=== PATIENT | female | born 1950 | race Caucasian/White ===

== ENCOUNTER 2018-07-22 09:05 | Emergency (ER) | payer OTHER ==
[2018-07-22 09:31] LABS: Absolute Lymphocytes (CBC) 1.6 K/uL (0.7-4.9); Absolute Monocytes 0.3 K/uL (0.1-1.3); Absolute Neutrophil 3.2 K/uL (1.8-8.0); Basophils % 0.8 % (0-1.3); Eosinophils % 1.6 % (0-4.4); Hematocrit 43.1 % (36.0-45.0); Lymphocytes % 31.3 % (15.3-44.8); MCH 29.6 pg (27.0-35.0); MCV 86.5 fL (80-100); MPV 9.9 fL (7.6-11.3); Monocytes % 6.4 % (3.3-12.3); Protime INR 1.04; RBC Red Blood Cell Count 4.98 M/uL (3.86-4.86)
--- NOTE | 2018-07-22 09:41 | RAD REPORT ---
EXAM DESCRIPTION: CT - Head Brain Wo Cont - 07/22/2018 9:26 am CLINICAL HISTORY: WEAKNESS Headache, TIA/CVA COMPARISON: No comparisons TECHNIQUE: All CT scans are performed using dose optimization technique as appropriate and may inclu de automated exposure control or mA/KV adjustment according to patient size. FINDINGS: No intracranial hemorrhage, hydrocephalus or extra-axial fluid collection.Mild generalized brain atrophy is present with mild periventricular and deep white matter chronic microvascular ische nadia changes.No areas of brain edema or evidence of midline shift. The paranasal sinuses and mastoids are clear. The calvarium is intact. IMPRESSION: No acute intracranial abnormality.
[2018-07-22 09:44] LABS: ALT/SGPT 27 U/L (12-78); AST/SGOT 22 U/L (15-37); Albumin 4.2 g/dL (3.4-5.0); Alkaline Phosphatase 86 U/L (45-117); BUN Blood Urea Nitrogen 11 mg/dL (7-18); Bicarbonate 29 mmol/L (21-32); Bilirubin Direct 0.1 mg/dL (0-0.2); Bilirubin Total 0.4 mg/dL (0.2-1.0); Glucose Level 103 mg/dL (74-106); Magnesium 2.2 mg/dL (1.8-2.4); NT PRO-BNP 198 pg/mL (<125); Potassium 3.7 mmol/L (3.5-5.1); Protein, Total 8.2 g/dL (6.4-8.2); Sodium Level 141 mmol/L (136-145); Troponin (Emerg Dept Use Only) < 0.02 ng/mL (0.0-0.045)
--- NOTE | 2018-07-22 10:12 | RAD REPORT ---
EXAM DESCRIPTION: RAD - Chest Single View - 07/22/2018 9:37 am CLINICAL HISTORY: MALAISE Chest pain. COMPARISON: CHEST PA AND LAT 2 VIEW dated 09/03/2012 FINDINGS: Portable technique limits examination quality. The lungs are grossly clear. The heart is normal in size. No displaced fractures. IMPRESSION: No acute intrathoracic process suspected.
--- NOTE | 2018-07-22 10:47 | EKG ---
Test Date: 2018-07-22 Test Time: 09:51:33 Drum Drier: MORENO MEASUREMENT RESULTS: Intervals: Rate: 66 IN: 148 QRSD: 96 QT: 432 QTc: 452 Elmo: P: 46 IN: 148 QRS: 36 T: 48 INTERPRETIVE STATEMENTS: Sinus rhythm with premature atrial complexes Otherwise normal ECG Compared to ECG 06/22/2012 17:12:21 Atrial premature complex(es) now present Electronically Signed On 07-22-18 10:47:05 CDT by Melvin Rivas
[2018-07-22 11:18] LABS: Urine Blood NEGATIVE (NEG); Urine Glucose NEGATIVE (NEG); Urine Protein NEGATIVE (NEG)
--- NOTE | 2018-07-22 12:14 | RAD REPORT ---
EXAM DESCRIPTION: MRI - Brain W/Wo Cont - 07/22/2018 11:55 am CLINICAL HISTORY: STROKE CVA/TIA, headache COMPARISON: MRA Head Wo Cont dated 07/22/2018; Head Brain Wo Cont dated 07/22/2018 TECHNIQUE: Multi-sequence, multiplanar MR imaging of the brain was performed with contrast. FINDINGS: No intracranial hemorrhage, hydrocephalus, extra-axial fluid collection or acute infarctio n.Mild confluent T2/FLAIR hyperintensity in the periventricular and deep white matter is present comp atible with chronic microvascular ischemic changes. No edema or shift of midline structures. No intra cranial mass. DWI is negative for acute CVA. The midline structures are normally formed. Mild mucoperiosteal thickening affects the inferior left maxillary antrum. The paranasal sinuses and mastoids are otherwise clear. Post-contrast images show no abnormal enhancement to suggest tumor or infection. IMPRESSION: Negative for acute CVA or other acute intracranial process. No pathologic post-contrast enhancement suspected.
--- NOTE | 2018-07-22 12:18 | RAD REPORT ---
EXAM DESCRIPTION: MRI - MRA Head Wo Cont - 07/22/2018 11:55 am CLINICAL HISTORY: speech difficulty TIA CVA COMPARISON: Head Brain Wo Cont dated 07/22/2018 FINDINGS: 3D noncontrast [id number] MR angiography of the [place] was performed. No aneurysm, flow-limiting stenosis or vascular malformation is seen. Forward flow seen in codominant vertebral arteries. The visualized dural venous sinuses appear patent. IMPRESSION: No significant flow abnormality of the [place] is identified.
--- NOTE | 2018-07-22 12:24 | RAD REPORT ---
EXAM DESCRIPTION: MRI - MRA Neck W/Wo Cont - 07/22/2018 11:55 am CLINICAL HISTORY: STROKE CVA -TIA symptomology. COMPARISON: MRA Head Wo Cont dated 07/22/2018; Head Brain Wo Cont dated 07/22/2018 FINDINGS: Contrast enhance 2D [id number] MR angiography of the neck vessels was performed. Both common carotid arteries and internal carotid arteries demonstrate normal size and flow pattern. No significant carotid stenosis is suspected. Forward flow is seen in both vertebral arteries. IMPRESSION: No significant flow abnormality of the neck vessels.
--- NOTE | 2018-07-22 12:27 | ER ---
Nurse's Notes [facility] Name: Ivette Vu Age: 67 yrs Sex: Female : 1950 Arrival Date: 07/22/2018 Time: 09:07 Bed 4 Private MD: Diagnosis: Vascular headache, not elsewhere classified Presentation: 07/22 09:07 Presenting complaint: Patient states: headache to right sabianism since last night. Pt aa5 reports waking up this morning with nausea, feeling shaky, generalized weakness, and tingling to right hand. Pt's reports slight slurred speech, pt states "I don't feel like my speech is slurred maybe just a little slower than usual". Clear speech noted at this time. 09:07 Transition of care: patient was not received from another setting of care. Onset of aa5 symptoms. Care prior to arrival: None. 09:07 Method Of Arrival: Wheelchair aa5 09:07 Acuity: KRISHNA 2 aa5 12:54 No acute neurological deficit is noted. The patients blood glucose was checked before hj arriving to the hospital and was found to be normal. Triage Assessment: 09:00 The onset of the patients symptoms was July 21, 2018 at 21:00. General: Appears in bp no apparent distress. comfortable, Behavior is calm, cooperative. Historical: - Allergies: 09:08 Sulfa (Sulfonamide Antibiotics); aa5 - PMHx: 09:08 Hypertension; Thyroid problem; aa5 - PSHx: 09:08 Cholecystectomy; Hysterectomy; aa5 - Immunization history:: Adult Immunizations up to date. - Social history:: Smoking status: Patient/guardian denies using tobacco. Screenin:11 Abuse screen: Denies threats or abuse. Denies injuries from another. Nutritional bp screening: No deficits noted. Tuberculosis screening: No symptoms or risk factors identified. Fall Risk None identified. No fall in past 12 months (0 pts). Assessment: 09:12 The patient has not been NPO before screening. The patient is alert, and able to follow bp commands. The patient does not exhibit slurred or garbled speech. The patient is not exhibiting difficulty speaking. The patient does not exhibit difficulty understanding words. The patient is able to swallow own secretions with no drooling or need for suction. Patient tolerated one teaspoon of water. No drooling, immediate coughing, gurgling, or clearing of the throat was noted. The patient tolerated 90mL of water. No drooling, immediate coughing, gurgling, or clearing of the throat was noted. The patient passed the bedside swallow screening. Oral medications may be given as ordered. Contact Physician for further diet orders. Provider notified of bedside swallow screening results: Lon Rodriguez MD. T-PA (Activase) Screening: Contraindications: Patient reports onset of signs and symptoms of stroke greater than 6 hours ago: Yes. Rapidly improving condition or minor deficit: Yes. General: Appears in no apparent distress. comfortable, Behavior is calm, cooperative, appropriate for age. Pain: Denies pain. Neuro: Level of Consciousness is awake, alert, obeys commands, Oriented to person, place, time, situation, Appropriate for age Reports weakness GENERALIZED. Cardiovascular: Rhythm is sinus rhythm. Respiratory: Airway is patent Respiratory effort is even, unlabored, Respiratory pattern is regular, symmetrical. GI: Reports nausea. : No signs and/or symptoms were reported regarding the genitourinary system. EENT: No deficits noted. Derm: No deficits noted. Musculoskeletal: Circulation, motion, and sensation intact. Range of motion: intact in all extremities. 09:29 Reassessment: PT RETURNED FROM CT. bp 10:00 Reassessment: ALL CURRENT ORDERS COMPLETED, RESULTS UNREMARKABLE. DISPO PENDING. NO bp NEURO DEFICITS AT THIS TIME. 11:03 Reassessment: PT TO MRI WITH DIRECTOR FEDERAL. bp 12:15 Reassessment: PT RETURNED FROM MRI. bp Vital Signs: 09:11 BP 185 / 86; Pulse 68; Resp 16; Temp 98; Pulse Ox 100% ; Weight 64.41 kg; Height 5 ft. bp 2 in. (157.48 cm); 09:31 BP 171 / 74; Pulse 69; Resp 16; Pulse Ox 99% ; bp 10:00 BP 156 / 76; Pulse 72; Resp 19; Pulse Ox 99% ; bp 10:40 BP 155 / 90; Pulse 66; Resp 18; Pulse Ox 99% on R/A; hj 12:16 BP 160 / 65; Pulse 66; Resp 14; Pulse Ox 100% ; bp 09:11 Body Mass Index 25.97 (64.41 kg, 157.48 cm) bp NIH Stroke Scale Scores: 09:12 NIHSS Score: 0 bp ED Course: 09:07 Patient arrived in ED. hj 09:07 Arm band placed on Patient placed in an exam room, on a stretcher. aa5 09:08 Lon Rodriguez MD is Attending Physician. gs 09:11 Warren Sue, RN is Primary Nurse. bp 09:11 Triage completed. aa5 09:15 Initial lab(s) drawn, by me, sent to lab. Inserted saline lock: 22 gauge in right hj antecubital area, using aseptic technique. Blood collected. 09:17 Patient has correct armband on for positive identification. Bed in low position. Call bp light in reach. Side rails up X2. Adult w/ patient. 09:24 X-ray completed. Portable x-ray completed in exam room. Patient tolerated procedure sw well. 09:24 XRAY Chest (1 view) In Process Unspecified. EDMS 09:24 CT completed. Patient tolerated procedure well. Patient moved to CT via wheelchair. [email or web address] Patient moved back from CT. 09:26 CT Head Brain wo Cont In Process Unspecified. EDMS 09:55 EKG done, by clinical laboratory technician. reviewed by Lon Rodriguez MD. sm3 11:10 Patient moved to MRI via wheelchair. lc 11:55 MRA Head Wo Cont In Process Unspecified. EDMS 11:55 Brain W/Wo Cont In Process Unspecified. EDMS 11:55 MRA Neck W/Wo Cont In Process Unspecified. EDMS Administered Medications: No medications were administered Point of Care Testing: Blood Glucose: 09:18 Blood Glucose: 92 mg/dL; bp Ranges: Outcome: 12:27 Discharge ordered by MD. 12:53 Discharged to home ambulatory, with family. 12:53 Condition: stable 12:53 Discharge instructions given to patient, family, Instructed on discharge instructions, follow up and referral plans. Demonstrated understanding of instructions, follow-up care. 12:54 Patient left the ED. NIH Stroke Scale - NIH Stroke Score Date: 07/22/2018 Time: 09:12 Total Score = 0 1a. Level of Consciousness (LOC) - 0(Alert) 1b. Level of Consciousness (LOC) (Year \\T\\ Age) - 0(Both) 1c. LOC Commands (Open \\T\\ Closes Eyes/Improvement Leader) - 0(Both) 2. Best Gaze (Lateral Gaze Paresis) - 0(Normal) 3. Visual Field Loss - 0(No visual loss) 4. Facial Palsy - 0(Normal) 5a. Left Arm: Motor (10-second hold) - 0(No drift) 5b. Right Arm: Motor (10-second hold) - 0(No drift) 6a. Left Leg: Motor (5-second hold - always test supine) - 0(No drift) 6b. Right Leg: Motor (5-second hold - always test supine) - 0(No drift) 7. Limb Ataxia (finger/nose \\T\\ heel/garcia - test with eyes open) - 0(Absent) 8. Sensory Loss (pinprick arms/legs/face) - 0(Normal) 9. Best Language: Aphasia (description/naming/reading) - 0(No aphasia) 10. Dysarthria (speech clarity - read or repeat words) - 0(Normal) 11. Extinction and Inattention (visual/tactile/auditory/spatial/personal) - 0(No abnormality) Initials: bp Signatures: Dispatcher [employer] EDMS Yomaira Neri Audri, RN RN aa5 Amy Saleem Henry, RN RN hj Lon Rodriguez MD MD gs Peltier, Brian, RN RN Simin Nielson Jessica jg6 Corrections: (The following items were deleted from the chart) 09:17 09:11 64.41 kg; Height 5 ft. 2 in.; BMI: 25.9; bp bp
--- NOTE | 2018-07-22 12:28 | EDPHYS ---
Physician Documentation [facility] Name: Ivette Vu Age: 67 yrs Sex: Female : 1950 Arrival Date: 07/22/2018 Time: 09:07 Bed 4 Private MD: ED Physician Lon Rodriguez HPI: 07/22 09:09 This 67 yrs old Female presents to ER via Unassigned with complaints of gs Slurred Speech. 09:09 The patient presents to the emergency department with a speech or higher order brain gs function problem. 10:25 Onset: The symptoms/episode began/occurred yesterday, at 20:00. Context: occurred at home. Associated signs and symptoms: Pertinent positives: headache, weakness. Severity of symptoms: At their worst the symptoms were moderate in the emergency department the symptoms have improved markedly. Current symptoms: Currently, the patient is not experiencing any symptoms, the patient feels back to baseline, no headache. The patient has not experienced similar symptoms in the past. Historical: - Allergies: 09:08 Sulfa (Sulfonamide Antibiotics); aa5 - PMHx: 09:08 Hypertension; Thyroid problem; aa5 - PSHx: 09:08 Cholecystectomy; Hysterectomy; aa5 - Immunization history:: Adult Immunizations up to date. - Social history:: Smoking status: Patient/guardian denies using tobacco. Vital Signs: 09:11 BP 185 / 86; Pulse 68; Resp 16; Temp 98; Pulse Ox 100% ; Weight 64.41 kg; Height 5 ft. bp 2 in. (157.48 cm); 09:31 BP 171 / 74; Pulse 69; Resp 16; Pulse Ox 99% ; bp 10:00 BP 156 / 76; Pulse 72; Resp 19; Pulse Ox 99% ; bp 10:40 BP 155 / 90; Pulse 66; Resp 18; Pulse Ox 99% on R/A; hj 12:16 BP 160 / 65; Pulse 66; Resp 14; Pulse Ox 100% ; bp 09:11 Body Mass Index 25.97 (64.41 kg, 157.48 cm) bp NIH Stroke Scale Scores: 09:12 NIHSS Score: 0 bp MDM: 09:08 Patient medically screened. 07/22 09:12 Order name: Basic Metabolic Panel; Complete Time: : gs 07/22 09:12 Order name: CBC with Diff; Complete Time: :16 gs 07/22 10:19 Interpretation: RBC 4.98. gs 07/22 09:12 Order name: LFT's; Complete Time: 10:16 gs 07/22 09:12 Order name: Magnesium; Complete Time: 10:16 gs 07/22 09:12 Order name: NT PRO-BNP; Complete Time: 10:16 gs 07/22 09:12 Order name: PT-INR; Complete Time: 10:16 gs 07/22 09:12 Order name: Troponin (emerg Dept Use Only); Complete Time: 10:16 gs 07/22 09:12 Order name: XRAY Chest (1 view); Complete Time: 10:16 gs 07/22 09:12 Order name: CT Head Brain wo Cont; Complete Time: 10:16 gs 07/22 09:18 Order name: Glucose, Ancillary Testing; Complete Time: 10:16 EDMS 07/22 11:10 Order name: Urine Dipstick--Ancillary (enter results) bd 07/22 11:21 Order name: MRA Head Wo Cont; Complete Time: 12:25 EDMS 07/22 11:22 Order name: Brain W/Wo Cont; Complete Time: 12:25 EDMS 07/22 09:12 Order name: EKG; Complete Time: 09:13 gs 07/22 09:12 Order name: Cardiac monitoring; Complete Time: 09:19 gs 07/22 09:12 Order name: EKG - Nurse/Tech; Complete Time: 09:52 gs 07/22 09:12 Order name: IV Saline Lock; Complete Time: 09:18 gs 07/22 09:12 Order name: Labs collected and sent; Complete Time: 09:18 gs 07/22 09:12 Order name: O2 Per Protocol; Complete Time: 09:18 gs 07/22 09:12 Order name: O2 Sat Monitoring; Complete Time: 09:18 gs 07/22 11:04 Order name: Urine Dipstick-Ancillary (obtain specimen); Complete Time: 11:24 bp 07/22 11:22 Order name: MRA Neck W/Wo Cont; Complete Time: 12:25 EDMS Administered Medications: No medications were administered Point of Care Testing: Blood Glucose: 09:18 Blood Glucose: 92 mg/dL; bp Ranges: Critical Glucose Levels:Adult <50 mg/dl or >400 mg/dl <40 mg/dl or >180 mg/dl Disposition: 07/22/18 12:27 Discharged to Home. Impression: Vascular headache, not elsewhere classified. - Condition is Stable. - Discharge Instructions: General Headache Without Cause, Transient Ischemic Attack. - Medication Reconciliation Form, Thank You Letter, Antibiotic Education, Prescription Opioid Use form. - Follow up: Private Physician; When: 2 - 3 days; Reason: Re-evaluation by your physician. NIH Stroke Scale - NIH Stroke Score Date: 07/22/2018 Time: 09:12 Total Score = 0 1a. Level of Consciousness (LOC) - 0(Alert) 1b. Level of Consciousness (LOC) (Year \T\ Age) - 0(Both) 1c. LOC Commands (Open \T\ Closes Eyes/[place]) - 0(Both) 2. Best Gaze (Lateral Gaze Paresis) - 0(Normal) 3. Visual Field Loss - 0(No visual loss) 4. Facial Palsy - 0(Normal) 5a. Left Arm: Motor (10-second hold) - 0(No drift) 5b. Right Arm: Motor (10-second hold) - 0(No drift) 6a. Left Leg: Motor (5-second hold - always test supine) - 0(No drift) 6b. Right Leg: Motor (5-second hold - always test supine) - 0(No drift) 7. Limb Ataxia (finger/nose \T\ heel/garcia - test with eyes open) - 0(Absent) 8. Sensory Loss (pinprick arms/legs/face) - 0(Normal) 9. Best Language: Aphasia (description/naming/reading) - 0(No aphasia) 10. Dysarthria (speech clarity - read or repeat words) - 0(Normal) 11. Extinction and Inattention (visual/tactile/auditory/spatial/personal) - 0(No abnormality) Initials: bp Signatures: Dispatcher [employer] [facility] Anne-Marie Rothman RN RN aa5 Venkatesh Mclean RN RN hj Starr, Gregory, MD MD gs Peltier, Brian RN RN bp Corrections: (The following items were deleted from the chart) 11:21 10:34 Stroke Protocol ordered. [facility] 12:54 12:27 07/22/2018 12:27 Discharged to Home. Impression: Vascular headache, not hj elsewhere classified. Condition is Stable. Forms are Medication Reconciliation Form, Thank You Letter, Antibiotic Education, Prescription Opioid Use. Follow up: Private Physician; When: 2 - 3 days; Reason: Re-evaluation by your physician. gs
[2018-07-22 13:07] VITALS: TEMP 98
[2018-07-22 13:12] VITALS: BP 160/65; O2SAT 100
== END 2018-07-22 12:54 | disposition home or self-care (01) ==
LOC: ER 09:05
DX: G44.1 Vascular headache, not elsewhere classified (principal); I10 Essential (primary) hypertension; Z88.2 Allergy status to sulfonamides
CPT/HCPCS: 36415; 70450; 70544; 70549; 70553; 71045; 80048; 80076; 81003; 82962; 83735; 83880; 84484; 85025; 85610; 93005; 99285; A9577

== ENCOUNTER 2019-09-02 09:50 | Day surgery (SDC) | payer OTHER ==
[2019-09-02] MEDS ORDERED: Zoledronic Acid/Mannitol/Water 5 MG/100 ML INFUS.BOT IV ONE (10:00)
[2019-09-02 10:42] VITALS: BP 132/67; TEMP 98.8; O2SAT 97
[2019-09-02 10:43] VITALS: BMI 27.1
== END 2019-09-02 10:50 | disposition home or self-care (01) ==
LOC: DS 09:50
PROVIDERS: ATTEND Specialist
DX: M81.0 Age-related osteoporosis without current pathological fracture (principal); Z88.9 Allergy status to unspecified drugs, medicaments and biological substances
CPT/HCPCS: 96365; J3489

== ENCOUNTER 2020-01-11 16:31 | Observation (INO) | payer OTHER ==
[2020-01-11 17:30] LABS: Absolute Lymphocytes (CBC) 0.6 K/uL (0.7-4.9); Basophils % 0.1 % (0-1.3); Hematocrit 38.5 % (36.0-45.0); Lymphocytes % 6.4 % (15.3-44.8); MPV 10.4 fL (7.6-11.3); RBC Red Blood Cell Count 4.44 M/uL (3.86-4.86)
[2020-01-11] MEDS ORDERED: NA CHLORIDE 0.9% 1,000 ML ONE (17:30)
[2020-01-11 17:34] LABS: Protime INR 1.02
[2020-01-11 17:50] LABS: ALT/SGPT 24 U/L (12-78); AST/SGOT 17 U/L (15-37); Albumin 3.8 g/dL (3.4-5.0); Alkaline Phosphatase 59 U/L (45-117); BUN Blood Urea Nitrogen 14 mg/dL (7-18); Bicarbonate 27 mmol/L (21-32); Bilirubin Direct 0.1 mg/dL (0-0.2); Bilirubin Total 0.5 mg/dL (0.2-1.0); Glucose Level 119 mg/dL (74-106); Lipase 200 U/L (73-393); Magnesium 1.8 mg/dL (1.8-2.4); NT PRO-BNP 627 pg/mL (<125); Potassium 3.6 mmol/L (3.5-5.1); Protein, Total 7.6 g/dL (6.4-8.2); Sodium Level 135 mmol/L (136-145); Troponin (Emerg Dept Use Only) < 0.02 ng/mL (0.0-0.045)
[2020-01-11 17:54] LABS: Platelet Estimate ADEQ; Urine White Blood Cell Casts OK
[2020-01-11 17:55] LABS: Blood Morphology Comment NOT SEEN (NOT SEEN)
--- NOTE | 2020-01-11 18:24 | RAD REPORT ---
EXAM DESCRIPTION: CT - Abdomen Pelvis W Contrast - 01/11/2020 6:11 pm CLINICAL HISTORY: Abdominal pain COMPARISON: none. TECHNIQUE: Computed axial tomography of the abdomen pelvis was obtained. 100 cc Isovue-300 was admin istered intravenously. Oral contrast was not requested which limits evaluation of bowel. All CT scans are performed using dose optimization technique as appropriate and may include automated exposure control or mA/KV adjustment according to patient size. FINDINGS: The liver, pancreas, adrenals and kidneys are unremarkable Splenic granulomata Cholecystectomy There is no evidence of diverticulitis. The appendix is dilated. It contains an appendicolith. The appendix extends superiorly and posteriorl y from the cecum. Stranding is present the adjacent fat. No free air IMPRESSION: Appendicitis
--- NOTE | 2020-01-11 18:41 | EDPHYS ---
Physician Documentation [facility] Name: Ivette Vu Age: 69 yrs Sex: Female : 1950 Arrival Date: 01/11/2020 Time: 16:34 Bed 5 Private MD: Toni Pinto V ED Physician Ashish Teran HPI: 01/10 17:10 This 69 yrs old Female presents to ER via Ambulatory with complaints of sammy Abdominal Pain. 17:10 The patient presents with abdominal pain in the lower abdomen, right lower quadrant. sammy Onset: The symptoms/episode began/occurred 2 day(s) ago. The symptoms do not radiate. Associated signs and symptoms: none. The symptoms are described as crampy, steady. Modifying factors: The symptoms are alleviated by nothing, the symptoms are aggravated by nothing. Severity of pain: At its worst the pain was moderate in the emergency department the pain is unchanged. The patient has not experienced similar symptoms in the past. Historical: - Allergies: 16:39 Sulfa (Sulfonamide Antibiotics); ll1 - PMHx: 16:39 Hypertension; Thyroid problem; ll1 - PSHx: 16:39 Hysterectomy; Cholecystectomy; ll1 - Immunization history:: Flu vaccine is up to date. - Social history:: Smoking status: Patient denies any tobacco usage or history of. Patient/guardian denies using alcohol, IV drugs, tobacco products. - Family history:: not pertinent. ROS: 17:10 Constitutional: Negative for fever, chills, and weight loss, Eyes: Negative for injury, sammy pain, redness, and discharge, ENT: Negative for injury, pain, and discharge, Neck: Negative for injury, pain, and swelling, Cardiovascular: Negative for chest pain, palpitations, and edema, Respiratory: Negative for shortness of breath, cough, wheezing, and pleuritic chest pain, Back: Negative for injury and pain, : Negative for injury, bleeding, discharge, and swelling, MS/Extremity: Negative for injury and deformity, Skin: Negative for injury, rash, and discoloration, Neuro: Negative for headache, weakness, numbness, tingling, and seizure, Psych: Negative for depression, anxiety, suicide ideation, homicidal ideation, and hallucinations, Allergy/Immunology: Negative for hives, rash, and allergies, Endocrine: Negative for neck swelling, polydipsia, polyuria, polyphagia, and marked weight changes, Hematologic/Lymphatic: Negative for swollen nodes, abnormal bleeding, and unusual bruising. 17:10 Abdomen/GI: Positive for abdominal pain, abdominal cramps, of the right lower quadrant. Exam: 17:10 Constitutional: This is a well developed, well nourished patient who is awake, alert, sammy and in no acute distress. Head/Face: Normocephalic, atraumatic. Eyes: Pupils equal round and reactive to light, extra-ocular motions intact. Lids and lashes normal. Conjunctiva and sclera are non-icteric and not injected. Cornea within normal limits. Periorbital areas with no swelling, redness, or edema. ENT: Nares patent. No nasal discharge, no septal abnormalities noted. Tympanic membranes are normal and external auditory canals are clear. Oropharynx with no redness, swelling, or masses, exudates, or evidence of obstruction, uvula midline. Mucous membranes moist. Neck: Trachea midline, no thyromegaly or masses palpated, and no cervical lymphadenopathy. Supple, full range of motion without nuchal rigidity, or vertebral point tenderness. No Meningismus. Chest/axilla: Normal chest wall appearance and motion. Nontender with no deformity. No lesions are appreciated. Cardiovascular: Regular rate and rhythm with a normal S1 and S2. No gallops, murmurs, or rubs. Normal PMI, no JVD. No pulse deficits. Respiratory: Lungs have equal breath sounds bilaterally, clear to auscultation and percussion. No rales, rhonchi or wheezes noted. No increased work of breathing, no retractions or nasal flaring. Back: No spinal tenderness. No costovertebral tenderness. Full range of motion. Female : Normal external genitalia. Skin: Warm, dry with normal turgor. Normal color with no rashes, no lesions, and no evidence of cellulitis. MS/ Extremity: Pulses equal, no cyanosis. Neurovascular intact. Full, normal range of motion. Neuro: Awake and alert, GCS 15, oriented to person, place, time, and situation. Cranial nerves II-XII grossly intact. Motor strength 5/5 in all extremities. Sensory grossly intact. Cerebellar exam normal. Normal gait. Psych: Awake, alert, with orientation to person, place and time. Behavior, mood, and affect are within normal limits. Vital Signs: 16:37 BP 150 / 72; Pulse 58; Resp 17; Temp 98.6; Pulse Ox 99% ; Weight 65.77 kg; Height 5 ft. ll1 1 in. (154.94 cm); Pain 8/10; 17:47 BP 147 / 59; Pulse 59; Resp 17; Pulse Ox 100% ; bp 18:37 BP 146 / 65; Pulse 66; Resp 17; Pulse Ox 100% ; bp 19:00 BP 148 / 67; Pulse 70; Resp 18; Pulse Ox 99% ; ea 16:37 Body Mass Index 27.40 (65.77 kg, 154.94 cm) ll1 MDM: 16:41 Patient medically screened. [facility] 17:15 Data reviewed: vital signs, nurses notes, lab test result(s), EKG, radiologic studies, [facility] CT scan, plain films. 01/10 17:09 Order name: Basic Metabolic Panel; Complete Time: 18:02 [facility] 01/10 17:09 Order name: CBC with Diff; Complete Time: 18:02 [facility] 01/10 17:09 Order name: LFT's; Complete Time: 18:02 [facility] 01/10 17:09 Order name: Magnesium; Complete Time: 18:02 [facility] 01/10 17:09 Order name: NT PRO-BNP; Complete Time: 18:02 [facility] 01/10 17:09 Order name: PT-INR; Complete Time: 18:02 [facility] 01/10 17:09 Order name: Troponin (emerg Dept Use Only); Complete Time: 18:02 [facility] 01/10 17:09 Order name: XRAY Chest (1 view) [facility] 01/10 17:09 Order name: Lipase; Complete Time: 18:02 [facility] 01/10 17:09 Order name: CT Abd/Pelvis - IV Contrast Only [facility] 01/10 17:09 Order name: Urine Culture [facility] 01/10 17:55 Order name: CBC Smear Scan; Complete Time: 18:02 EDMS 01/10 18:45 Order name: Urine Dipstick--Ancillary (enter results) tn 01/10 17:09 Order name: EKG; Complete Time: 17:11 [facility] 01/10 17:09 Order name: Cardiac monitoring; Complete Time: 17:38 [facility] 01/10 17:09 Order name: EKG - Nurse/Tech; Complete Time: 17:38 [facility] 01/10 17:09 Order name: IV Saline Lock; Complete Time: 17:38 [facility] 01/10 17:09 Order name: Labs collected and sent; Complete Time: 17:38 [facility] 01/10 17:09 Order name: O2 Per Protocol; Complete Time: 17:38 [facility] 01/10 17:09 Order name: O2 Sat Monitoring; Complete Time: 17:39 [facility] 01/10 17:09 Order name: Urine Dipstick-Ancillary (obtain specimen); Complete Time: 18:50 [facility] 01/10 18:35 Order name: NPO; Complete Time: 18:51 [facility] Administered Medications: 17:20 Drug: NS 0.9% 1000 ml Route: IV; Rate: 1 bolus; Site: right antecubital; aa5 19:35 Follow up: IV Status: Completed infusion ea 18:45 Drug: Zosyn 3.375 grams Route: IVPB; Infused Over: 60 mins; Site: right antecubital; bp 19:35 Follow up: IV Status: Infusion continued upon admission ea Disposition: 01/11/20 18:40 Hospitalization ordered by Shyam Arizmendi for Observation. Preliminary diagnosis are Abdominal tenderness, Acute appendicitis. - Bed requested for Telemetry/MedSurg (observation). - Status is Observation. ea - Condition is Stable. - Problem is new. - Symptoms have improved. Signatures: Dispatcher [employer] Caryn Rondon RN Ashish Hannah MD MD cha Calderon, Audri, RN RN aaLiudmila Renteria RN Warren Hayes ea, RN RN bp Lewis, Lynsay RN RN ll1 Corrections: (The following items were deleted from the chart) 19:23 18:40 Hospitalization Ordered by Shyam Arizmendi MD for Observation. Preliminary diagnosis dw is Abdominal tenderness; Acute appendicitis. Bed requested for Telemetry/MedSurg (observation). Status is Observation. Condition is Stable. Problem is new. Symptoms have improved. [facility] 19:37 19:23 01/11/2020 18:40 Hospitalization Ordered by Shyam Arizmendi MD for Observation. ea Preliminary diagnosis is Abdominal tenderness; Acute appendicitis. Bed requested for Telemetry/MedSurg (observation). Status is Observation. Condition is Stable. Problem is new. Symptoms have improved. dw
--- NOTE | 2020-01-11 18:41 | ER ---
Nurse's Notes [facility] Name: Ivette Vu Age: 69 yrs Sex: Female : 1950 Arrival Date: 01/11/2020 Time: 16:34 Bed 5 Private MD: Toni Pinto V Diagnosis: Abdominal tenderness;Acute appendicitis Presentation: 01/10 16:37 Chief complaint: Patient states: RLQ abdominal pain began yesterday. No N/V/D. No ll1 fever. Coronavirus screen: Patient denies fever greater than 100.4F, cough, shortness of breath, or difficulty breathing. Proceed with normal triage process. Ebola Screen: Patient denies travel to an Ebola-affected area in the 21 days before illness onset. Initial Sepsis Screen: Does the patient meet any 2 criteria? No. Patient's initial sepsis screen is negative. Does the patient have a suspected source of infection? No. Patient's initial sepsis screen is negative. Risk Assessment: Do you want to hurt yourself or someone else? Patient reports no desire to harm self or others. 16:37 Method Of Arrival: Ambulatory 1 16:37 Acuity: KRISHNA 3 ll1 Triage Assessment: 16:45 General: Appears in no apparent distress. comfortable, Behavior is cooperative, bp appropriate for age, anxious. Pain: Complains of pain in right lower quadrant. EENT: No deficits noted. Neuro: No deficits noted. Cardiovascular: No deficits noted. Respiratory: No deficits noted. GI: Abdomen is non-distended. : No signs and/or symptoms were reported regarding the genitourinary system. Derm: No deficits noted. Musculoskeletal: No deficits noted. Historical: - Allergies: 16:39 Sulfa (Sulfonamide Antibiotics); ll1 - PMHx: 16:39 Hypertension; Thyroid problem; ll1 - PSHx: 16:39 Hysterectomy; Cholecystectomy; ll1 - Immunization history:: Flu vaccine is up to date. - Social history:: Smoking status: Patient denies any tobacco usage or history of. Patient/guardian denies using alcohol, IV drugs, tobacco products. - Family history:: not pertinent. Screenin:45 Abuse screen: Denies threats or abuse. Denies injuries from another. Nutritional bp screening: No deficits noted. Tuberculosis screening: No symptoms or risk factors identified. Fall Risk None identified. Assessment: 16:45 General: SEE TRIAGE NOTE. bp 17:30 Reassessment: Patient is alert, oriented x 3, equal unlabored respirations, skin aa5 warm/dry/pink. General: Appears comfortable. Pain: Is intermittent. 17:47 Reassessment: UOP PENDING, IVF INFUSING. NO S/S ACUTE DISTRESS AT THIS TIME. bp 18:39 Reassessment: PER RADIOLOGIST, ACUTE APPY ON CT. SURGERY PENDING. bp 18:50 Reassessment: DR DUVAL IN ROUTE FOR APPENDECTOMY. PT TBA FOR SURGERY. bp 19:33 General: Appears comfortable, Behavior is appropriate for age. Pain: Denies pain. ea Neuro: Level of Consciousness is awake, alert, obeys commands, Oriented to person, place, time, situation. Cardiovascular: Patient's skin is warm and dry. Respiratory: Airway is patent Respiratory effort is even, unlabored, Respiratory pattern is regular, symmetrical. Derm: Skin is pink, warm \T\ dry. 19:34 Reassessment: Bedside report given to OR nurse, pt wheeled to OR per nurse, pt ea tolerating well. Vital Signs: 16:37 BP 150 / 72; Pulse 58; Resp 17; Temp 98.6; Pulse Ox 99% ; Weight 65.77 kg; Height 5 ft. ll1 1 in. (154.94 cm); Pain 8/10; 17:47 BP 147 / 59; Pulse 59; Resp 17; Pulse Ox 100% ; bp 18:37 BP 146 / 65; Pulse 66; Resp 17; Pulse Ox 100% ; bp 19:00 BP 148 / 67; Pulse 70; Resp 18; Pulse Ox 99% ; ea 16:37 Body Mass Index 27.40 (65.77 kg, 154.94 cm) ll1 ED Course: 16:34 Patient arrived in ED. mr 16:34 Toni Pinto MD is Private Physician. mr 16:39 Triage completed. ll1 16:39 Ashish Teran MD is Attending Physician. sammy 16:40 Arm band placed on Patient placed in an exam room. ll1 16:45 Patient has correct armband on for positive identification. Bed in low position. Call bp light in reach. Side rails up X2. 16:52 Warren Sue, LEO is Primary Nurse. bp 17:20 Initial lab(s) drawn, by me, sent to lab. Inserted saline lock: 20 gauge in right aa5 antecubital area, using aseptic technique. Blood collected. 17:30 EKG done, by ED staff, reviewed by Ashish Teran MD. aa5 18:09 CT completed. Patient tolerated procedure well. Patient moved back from CT. bq 18:12 CT Abd/Pelvis - IV Contrast Only In Process Unspecified. EDMS 18:24 XRAY Chest (1 view) In Process Unspecified. EDMS 18:39 Shyam Duval MD is Hospitalizing Provider. [facility] 19:31 No provider procedures requiring assistance completed. Patient admitted, IV remains in ea place. Administered Medications: 17:20 Drug: NS 0.9% 1000 ml Route: IV; Rate: 1 bolus; Site: right antecubital; aa5 19:35 Follow up: IV Status: Completed infusion ea 18:45 Drug: Zosyn 3.375 grams Route: IVPB; Infused Over: 60 mins; Site: right antecubital; bp 19:35 Follow up: IV Status: Infusion continued upon admission ea Outcome: 18:40 Decision to Hospitalize by Provider. [facility] 19:31 Admitted to OR accompanied by nurse, via wheelchair, with chart, Report called to ea Bedside report given to OR nurse 19:31 Condition: stable 19:31 Instructed on the need for admit, Demonstrated understanding of instructions. 19:37 Patient left the ED. ea Signatures: Dispatcher [employer] Ashish Dowell MD MD cha Rivera, Symone Anaya Anne-Marie Vázquez RN RN aa5 Liudmila Grady RN RN ea Peltier, Brian, RN RN bp Lewis, Lynsay, RN RN ll1
[2020-01-11 18:47] LABS: Urine Blood NEGATIVE (NEG); Urine Glucose NEGATIVE (NEG); Urine Protein NEGATIVE (NEG); Urine pH 6.5 (5.0-7.0)
[2020-01-11] MEDS ORDERED: PIPER/TAZO/NS 3.375gm 3.375 GM/100 ML BAG ONE (18:50)
--- NOTE | 2020-01-11 18:52 | RAD REPORT ---
EXAM DESCRIPTION: Kannan Single View01/11/2020 6:23 pm CLINICAL HISTORY: Abdominal pain COMPARISON: 2017 FINDINGS: The lungs appear clear of acute infiltrate. The heart is normal size IMPRESSION: No acute abnormalities displayed
[2020-01-11] MEDS ORDERED: BUPIVACA 0.5%/EPI 0.0005%/PF 30 ML VIAL ONE (19:55)
[2020-01-11] MEDS ORDERED: BUPIVACA 0.25%/EPI 0.0005%/PF 30 ML VIAL ONE (20:00)
[2020-01-11] MEDS ORDERED: SUCCINYLCHOLINE 20 MG/ML (10 ML) IV ONE (20:08)
[2020-01-11] MEDS ORDERED: FENTANYL CITR 100 MCG/2 ML ONE (20:10)
[2020-01-11] MEDS ORDERED: propofoL 200 MG/20 ML VIAL IV ONE (20:10)
--- NOTE | 2020-01-11 20:38 | HP ---
Date of Admission: 01/11/2020 Brief History Of Present Illness: Patient is a 69-year-old female, who presents to the [facility] with complaints of abdominal pain beginning last night. It got progressively worse over the co urse of the day. She said it felt like labor pains predominantly in the infraumbilical and periumbil ical area with localization to the right lower quadrant and got progressively worse. It was associat ed with some nausea. No similar episodes before in the past. She had decreased appetite. No other significant symptomatology and as such, she came to the emergency room with the above-stated complain ts. Past Medical History: Significant only for hypertension and thyroid problems. Past Surgical History: She has had a hysterectomy and cholecystectomy. Allergies: TO SULFA. Social History: She denies smoking, alcohol, or recreational drug use. Review of Systems: 10-point review of systems other than HPI, denies. Physical Examination: Vital Signs: At the time of my examination, her vital signs were blood pressure 150/72, pulse 58, re spiratory rate 17, temperature 98.6. General: She is awake, alert, and oriented. Psychiatric: Appropriately conversive. HEENT: Normocephalic. Sclerae anicteric. Mucous membranes are moist. Oropharynx is clear. Neck: Supple. No JVD. Chest: Normal expansion and excursion. Cardiovascular: Regular rate and rhythm. Pulmonary: Clear to auscultation bilaterally. Abdomen: Soft with positive right lower quadrant focal peritonitis at McBurney's point. Positive vo luntary guarding. Positive rebound. Well-healed surgical scars were evident. Extremities: No clubbing, cyanosis, or edema. Skin: Warm, dry. Laboratory Data: Laboratory exam reveals a white blood cell count of 8.9, hemoglobin is 12.9, hemato crit of 38.5, platelet count is 226, neutrophils are 90%, PT 12.0, INR 1.02. Sodium 135, potassium 3 .6, chloride 102, carbon dioxide 27, BUN 14, creatinine 0.8, glucose is 119, calcium 8.7, total bilir ubin 0.5, direct component 0.1, magnesium 1.8, AST 17, ALT 24, alkaline phosphatase is 59, lipase 200 . ProBNP 2627. UA was negative. She had a CT scan performed of the abdomen and pelvis, officially read as appendix is dilated containing appendicolith. The appendix extends superiorly and posteriorl y from the cecum stranding that is present within the adjacent fat. No free air consistent with acut e appendicitis. Assessment And Plan: This is a 69-year-old female, who comes in with signs and symptoms of early acu te appendicitis. 1.IV fluid hydration. 2.Antibiotic coverage. 3.I have explained the risks, benefits, and alternatives of laparoscopic, possible open appendectomy including but not limited to bleeding, infection, damage to surrounding tissue, need for further ope ration and procedures. The patient agrees to proceed as indicated. ERMU/ALANA Voice ID: [id number]
[2020-01-11] MEDS ORDERED: ROCURONIUM 50 MG/5 ML VIAL IV ONE (21:04)
[2020-01-11] MEDS ORDERED: GLYCOPYRROLATE 0.2 MG/ML SYR ONE (21:05)
--- NOTE | 2020-01-11 21:09 | P.OP ---
Preoperative diagnosis: Acute Non-Perforated Appendicitis Postoperative diagnosis: Acute Non-Perforated Appendicitis Primary procedure: Laparoscopic Appendectomy Anesthesia: GETA + Local Estimated blood loss: <5cc Specimen: Vermiform Appendix Findings: Gross Inflammation, Friable Appendix, Adhesions Complications: None Transferred to: Recovery Room Condition: Good
[2020-01-11] MEDS ORDERED: NEOSTIGMINE 1 MG/ML -5 ML ONE (21:14)
[2020-01-11] MEDS ORDERED: ONDANSETRON 4 MG/2 ML VIAL ONE (21:15)
[2020-01-11] MEDS ORDERED: MEPERIDINE HCL 25 MG/0.5 ML ONE (21:15)
[2020-01-11] MEDS ORDERED: KETOROLAC 30 MG/ML INJ ONE (21:22)
[2020-01-11] MEDS ORDERED: Ringers Lactate 1,000 ML IV ONE (21:32)
[2020-01-11 22:18] VITALS: TEMP 98.5
[2020-01-11] MEDS ORDERED: HYDROCODONE/APAP 5/325 MG TAB ONE (22:18)
[2020-01-11 22:19] VITALS: BP 114/53; O2SAT 97
--- NOTE | 2020-01-11 22:23 | OP ---
Date of Procedure: 01/11/2020 Surgeon: Tracey Arizmendi MD, Preoperative Diagnosis: Acute nonperforated appendicitis. Postoperative Diagnosis: Acute nonperforated appendicitis. Procedure Performed: Laparoscopic appendectomy. Anesthesia: General endotracheal plus local with 0.5% Marcaine with epinephrine. Estimated Blood Loss: 5 cc. Specimen: Vermiform appendix. Findings: 1.Gross inflammatory changes consistent with acute appendicitis. 2.Friable appendix. 3.Nonperforated appendicitis. 4.Significant intraabdominal adhesions, and appendix was firmly attached to lateral abdominal wall. Complications: None. Disposition: Transferred to recovery room in good condition. Procedure In Detail: After informed consent was obtained, patient was brought to the operating room, prepped and draped in the usual sterile fashion after adequate anesthesia achieved. An infraumbilic al area was anesthetized with 0.25% Marcaine, sharply incised and 5 mm trocar was introduced in the a bdomen without complication. Insufflation was obtained to 15 mmHg at this time. There was no injury to vital structure upon entry of the abdomen. Additional trocar site was chosen in the suprapubic/r ight lower quadrant. This was similarly anesthetized area and an additional 5 mm trocar was introduc ed in the abdomen without evidence of complication. The umbilical trocar was then up-sized to a 12 m m under direct visualization without evidence of complication. The additional trocar was then placed in the left lower quadrant. This was similarly anesthetized, sharply incised, and a 5 mm trocar was introduced in the abdomen without complication. Patient was positioned head down, right side up pos ition. Ratcheted grasper was used to grasp the patient's cecum and elevated, grabbed by grabbing the ileal valve to show the area of the appendix, which was found to be firmly adhered with intraabdomin al adhesions to the right lateral abdominal wall. There was findings consistent with acute nonperfor ated appendicitis. The appendix was mobilized using blunt dissection and was found to be quite friab le at this point, but there was no obvious perforation. A mesoappendix was created with a [place] r etractor. Endo IHSAN 35 blue load was fired across the base of the appendix with good approximation of tissues. The mesoappendix was then taken down using the LigaSure device and the appendix was dissec tracey off the lateral abdominal wall using a combination of blunt and LigaSure dissection. The appendi x was then placed into the EndoCatch bag, although it was friable and torn at this point, but it was easily removed in its entirety and placed in the EndoCatch bag, removed from the umbilical trocar, nt for pathologic examination. The area was copiously irrigated multiple times until completely julianne r and there was no evidence of any leakage from the staple line and no additional hemostatic measures required. The area was copiously irrigated multiple times until completely clear. The patient was positioned in neutral position and the remainder of the abdomen was then suctioned out. The umbilica l trocar site was then inspected. The umbilical trocar was removed and the umbilical trocar site was closed using a Vinny-Jennifer suture passer with 0 Vicryl in interrupted fashion with good approxim ation of tissues. The abdomen was completely desufflated under direct visualization without complica tion. All trocars were removed. All skin incisions copiously irrigated and closed with a 4-0 Monocr yl in a running fashion Dermabond placed over top. The patient tolerated the procedure well without evidence of complication, transferred to PACU in good condition. All counts were correct at the end of the case. ERUM/ALANA Voice ID: [id number] Report ID: [id number]
--- NOTE | 2020-01-13 05:27 | EKG ---
Test Date: 2020-01-11 Test Time: 17:31:03 Chief Mechanical Officer: MONTSE MEASUREMENT RESULTS: Intervals: Rate: 60 ME: 172 QRSD: 94 QT: 444 QTc: 444 [place]in: P: 65 ME: 172 QRS: 27 T: 51 INTERPRETIVE STATEMENTS: Normal sinus rhythm Normal ECG Compared to ECG 07/22/2018 09:51:33 Atrial premature complex(es) no longer present Electronically Signed On 01-13-20 05:25:20 CDT by Angel Mcnamara
== END 2020-01-11 22:41 | disposition home or self-care (01) ==
LOC: ER 16:31 → ERHOLD 18:42
PROVIDERS: ADMIT Surgery; ATTEND Surgery
PROC: 0DTJ4ZZ Resection of Appendix, Percutaneous Endoscopic Approach (ICD-10-PCS; principal; 2020-01-11 19:30)
DX: K35.80 Unspecified acute appendicitis (principal); K66.0 Peritoneal adhesions (postprocedural) (postinfection); I10 Essential (primary) hypertension; E07.9 Disorder of thyroid, unspecified; Z88.2 Allergy status to sulfonamides; Z90.49 Acquired absence of other specified parts of digestive tract; Z90.710 Acquired absence of both cervix and uterus
CPT/HCPCS: 96365; 96361; 93005; 87088; 85025; 87086; 80048; 36415; 83735; 85610; 80076; 88304; 87077; 87186; 81003; 84484; 83690; 83880; 74177; 71045; 99285; 44970; Q9967; J2704; J0330; J3010; J2543; J2175; J2710; J7120; J7030; J2405; G0378

== ENCOUNTER 2020-12-08 10:44 | Day surgery (SDC) | payer OTHER ==
[2020-12-08] MEDS ORDERED: Zoledronic Acid/Mannitol/Water 5 MG/100 ML INFUS.BOT IV ONE (11:00)
[2020-12-08 11:43] VITALS: BP 141/67; TEMP 96.8; O2SAT 99
[2020-12-08 11:47] VITALS: BMI 26.3
== END 2020-12-08 12:00 | disposition home or self-care (01) ==
LOC: DS 10:44
PROVIDERS: ATTEND Obstetrics & Gynecology
DX: M81.0 Age-related osteoporosis without current pathological fracture (principal)
CPT/HCPCS: 96365; J3489

== ENCOUNTER 2021-11-03 08:52 | Day surgery (SDC) | payer OTHER ==
[2021-11-03] MEDS ORDERED: Zoledronic Acid/Mannitol/Water 5 MG/100 ML INFUS.BOT IV ONE (09:00)
[2021-11-03 11:12] VITALS: BP 154/72; TEMP 97; O2SAT 100; BMI 25.9
== END 2021-11-03 09:52 | disposition home or self-care (01) ==
LOC: DS 08:52
PROVIDERS: ATTEND Obstetrics & Gynecology
DX: M81.0 Age-related osteoporosis without current pathological fracture (principal)
CPT/HCPCS: 96365; J3489

== ENCOUNTER 2025-01-27 02:26 | Emergency (ER) | payer OTHER ==
--- OUTSIDE RECORDS SUMMARY | 2025-01-27 02:29 | XMS REPORT | Continuity of Care Document ---
Author Name Unknown Address [address] [place] [address] [facility] Address [address] [place] [address] Care Team Providers Care Retail Merchandising Coordinator Name Role Phone PCP, PATIENT DOES NOT HAVE A Primary Care Physic rosemary Unavailable RANJIT NAJERA Attending Clinician Unavail able Ranjit Najera MD Attending Clinician [phone] WILMAN MCDANIELS Attending Clinician Unavailable VALENTE HERNANDEZ Attending Clinician Unavailable Doctor Unassigned, [place] Attending Clinician U J Luis Newman MD Attending Clinician [phone] J LUIS ALCARAZ Attending Clinician Unavailable TO DELACRUZ K.HJerad Attending Clinician Unavailkike Mcdaniels MD, [place] Attending Clinician [phone] Debbie Solano MA Attending Clinician Unavailkelin Delacruz MD, To K.H. Attending Clinician + [phone] TO DELACRUZ K.HJerad Admitting Clinician Caroline hutchinson Payers Payer Name Policy Type Policy Number Effective Date Expirati on Date Source MEDICARE PART A AND B [id number] 2013 00:00:00 2020 00:00:[address] [facility] MEDICARE ADVANTAGE Medicare [id number] 2024 00:00:00 [employer] MEDICARE ADVANTAGE [id number] 2021 00:00:00 Problems Condition Name Condition Details Condition Category Status Onset Date Resolution Date Last Treatment Date Treating Clinician Comments Source 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 Lewy body dementia with mood disturbanc e Disease Active 01-14 00:00: 00 Vipin garber Augustine Renteria Hypertensi on Hypertensi on Disease Active 2019-10 00:00: 00 Vipin garber Augustine Epic Hypothyroi dism Hypothyroi dism Disease Active 2019-10 00:00: 00 Vipin garber Augustine Renteria Postmenopa usal osteoporos is Postmenopa usal osteoporos is Disease Active 2019-10 00:00: 00 Vipin garber Augustine Renteria Allergies, Adverse Reactions, Alerts Allergy Name Allergy Type Status Severity Reaction(s) Onset Date Inactive Date Treating Clinician Comments Source Sulfa (Sulfona mide Antibiot ics) Propensi ty to adverse reaction s Active Nausea and/or Vomiting 2019-10 00:00: 00 GI upset [facility] SULFA (SULFONA MIDE ANTIBIOT ICS) Drug Class Active N/V 2019-10 00:00: 00 [facility] Social History Social Habit Start Date Stop Date Quantity Comments Source Exposure to SARS-CoV-2 (event) Not sure [facility] Sexual orientation [facility] History of tobacco use Passive smoker [facility] ASSERTION Possible [facility] Gender identity Neo kayla [facility] Tobacco use and exposure 2025-01-14 00:00:00 2025-01-14 00:00:00 Smokeless tobacco non-user [facility] Alcoholic beverage intake 2025-01-14 00:00:00 2025-01-14 00:00:00 Lifetime non-drinker (finding) [facility] History of Social function 2025-01-14 00:00:00 2025-01-14 00:00:00 [facility] Alcohol intake 2021-09-26 00:00:00 2021-09-26 00:00:00 Current drinker of alcohol (finding) [facility] History SDOH Alcohol Frequency 2020-09-23 00:00:00 2020-09-23 00:00:00 99 [facility] History SDOH Alcohol Std Drinks 2020-09-23 00:00:00 2020-09-23 00:00:00 99 [facility] History SDOH Alcohol Binge 2020-09-23 00:00:00 2020-09-23 00:00:00 99 [facility] Alcohol Comment 2020-09-23 00:00:00 2020-09-23 00:00:00 very rare [facility] Sex Assigned At 1950 00:00:00 1950 00:00:00 [facility] Smoking Status Start Date Stop Date Source Never smoked tobacco Vipin Renteria Medications Ordered Medication Name Filled Medication Name Start Date Stop Date Current Medication? Ordering Clinician Indication Dosage Frequency Signature (SIG) Comments Components Source FLUoxetine (PROzac) 20 MG capsule FLUoxetine (PROzac) 20 MG capsule 01-14 09:26: 30 Yes 20mg QD Take 20 mg by mouth 1 time each day. Vipin Renteria niacin (True Vitamin B3) 50 MG tablet niacin (True Vitamin B3) 50 MG tablet 01-14 09:19: 39 Yes 50mg QD Take 50 mg by mouth 1 time each day. Vipin Renteria meclizine (Antivert) 25 MG tablet meclizine (Antivert) 25 MG tablet 01-14 09:19: 05 Yes 25mg Take 25 mg by mouth if needed for dizziness. Vipin Renteria galantamine (Razadyne) 4 MG tablet galantamine (Razadyne) 4 MG tablet 01-14 00:00: 00 01-14 23:59 :00 No 4mg Q.5D Take 1 tablet by mouth in the morning and 1 tablet in the evening. Vipin Renteria nebivolol (Bystolic) 10 MG tablet nebivolol (Bystolic) 10 MG tablet 12-24 00:00: 00 Yes 1{tbl} QD Take 1 tablet by mouth 1 time each day. Vipin Renteria levothyroxi ne (Synthroid, Levoxyl) 100 MCG tablet levothyroxi ne (Synthroid, Levoxyl) 100 MCG tablet 12-21 00:00: 00 Yes 100ug Take 100 mcg by mouth in the morning. Take before meals. Vipin Renteria QUEtiapine (SEROquel) 100 MG tablet QUEtiapine (SEROquel) 100 MG tablet 12-16 00:00: 00 Yes 100mg QD Take 100 mg by mouth 1 time each day. Vipin [facility] losartan (Cozaar) 100 MG tablet losartan (Cozaar) 100 MG tablet 11-16 00:00: 00 Yes 1{tbl} QD Take 1 tablet by mouth 1 time each day. Vipin [facility]shaw [facility] zoledronic acid/mannit ol-water (RECLAST IV) 2020-10 14:25: 22 Yes Inject intravenou sly. [facility] calcium citrate/vit rincon D3 (CITRACAL + D ORAL) 2020-10 14:25: 22 Yes Take by mouth. [facility] FLUoxetine 20 mg capsule 2019-10 13:42: 29 Yes 20mg Take 20 mg by mouth daily. [facility] levothyroxi ne 100 mcg tablet 2019-10 00:00: 00 Yes TK 1 T PO QAM OES [facility] losartan 100 mg tablet 2019-10 00:00: 00 Yes TK 1 T PO D [facility] BYSTOLIC 10 mg tablet 2019-10 00:00: 00 Yes TK 1 T PO D [facility] meclizine 25 mg tablet 2019-10 00:00: 00 Yes TK 1 T PO TID PRN [facility] Vital Signs Vital Name Observation Time Observation Value Comments S ernesto Systolic blood pressure 2025-01-14 09:32:00 118 mm[Hg] [facility] Diastolic blood pressure 2025-01-14 09:32:00 87 mm[Hg] [facility] Heart rate 2025-01-14 09:32:00 68 /min Carla chavez [facility] Body temperature 2025-01-14 09:32:00 36.72 Joaquina [facility] Respiratory rate 2025-01-14 09:32:00 16 /min [facility] Body height 2025-01-14 09:32:00 154.9 cm [facility] Body weight 2025-01-14 09:32:00 55.792 kg [facility] BMI 2025-01-14 09:32:00 23.24 [facility] in Arterial blood by Pulse oximetry 2025-01-14 09:32:00 98 /min [facility] Systolic blood pressure 2025-01-14 09:32:00 118 mm[Hg] [facility] Diastolic blood pressure 2025-01-14 09:32:00 87 mm[Hg] [facility] Heart rate 2025-01-14 09:32:00 68 /min Memgodwin chavez [facility] Body temperature 2025-01-14 09:32:00 36.72 Joaqunia [facility] Respiratory rate 2025-01-14 09:32:00 16 /min [facility] Body height 2025-01-14 09:32:00 154.9 cm [facility] weight 2025-01-14 09:32:00 55.792 [facility] BMI 2025-01-14 09:32:00 23.24 kg/m2 [facility] Oxygen saturation in Arterial blood by Pulse oximetry 2025-01-14 09:32:00 98 /min [facility] Procedures Procedure Date / Time Performed Performing Clinicia n Source EXTERNAL PROVIDER RECORDS 2021-11-02 06:01:00 Doctor Unassigned, [place] [facility] Encounters Start Date/Time End Date/Time Encounter Type Admission Type Attending [facility] Care Department Encounter ID Source 2022-05-18 12:25:51 Outpatient [facility] [id number] [facility] 2025-01-14 09:15:29 2025-01-14 10:09:11 Outpatient RANJIT NAJERA [facility] [id number] [facility] 2025-01-14 09:15:00 2025-01-14 10:09:11 Consult Ranjit Najera [id number] [id number] [id number] Vipin garber [facility] 2022-06-21 13:30:00 2022-06-21 13:30:00 Outpatient VALENTE HERNANDEZ [facility] [id number] [facility] 2021-11-02 00:00:00 2021-11-02 00:00:00 Orders Only Doctor Unassigned, [place] [facility] 1.20.114 350.1.13.10 4.2.7.2.686 [id number] [facility] 2021-10-24 00:00:00 2021-10-24 00:00:00 Telephone J Luis Alcaraz [facility] 1.2.114 350.1.13.10 4.2.7.2.686 [id number] [facility] 2021-10-17 00:00:00 2021-10-17 00:00:00 Outpatient Aimee ALCARAZHUSEYINN [facility] [id number] [facility] 2021-10-03 00:00:00 2021-10-03 00:00:00 Telephone J Luis Alcaraz [facility] 1..114 350.1.13.10 4.2.7.2.686 [id number] [facility] 2021-09-30 00:00:00 2021-09-30 00:00:00 Telephone J Luis Alcaraz [facility] 1.20.114 350.1.13.10 4.2.7.2.686 [id number] [facility] 2021-09-29 14:30:00 2021-09-29 14:30:00 Outpatient TO MARTINEZ [facility] [id number] [facility] 2021-09-29 14:30:00 2021-09-29 14:30:00 Outpatient R TO DELACRUZ [facility] [id number] [facility] 2021-09-28 13:00:00 2021-09-28 13:20:00 Office Visit Wilman Mcdaniels [facility] 1.2.114 350.1.13.10 4.2.7.2.686 [id number] [facility] 2021-09-28 13:00:00 2021-09-28 13:00:00 Outpatient Aimee ARSLAN STEPHANESHELLY [facility] [id number] [facility] 2021-09-26 14:00:00 2021-09-26 15:10:15 Outpatient Aimee HUSEYIN ALCARAZN [facility] [id number] [facility] 2021-09-26 13:47:46 2021-09-26 15:10:15 Office Visit J Luis Alcaraz [facility] 1.114 350.1.13.10 4.2.7.2.686 [id number] [facility] 2021-09-26 14:00:00 2021-09-26 14:00:00 Outpatient Aimee HUSEYIN ALCARAZN [facility] [id number] [facility] 2021-09-26 14:00:00 2021-09-26 14:00:00 Outpatient J LUIS YOUNG [facility] [id number] [facility] 2021-09-26 00:00:00 2021-09-26 00:00:00 Orders Only Doctor Unassigned, [place] [facility] 1.114 350.1.13.10 4.2.7.2.686 [id number] [facility] 2021-09-20 00:00:00 2021-09-20 00:00:00 Pre Visit Outreach Debbie Solano 1.114 350.1.13.10 4.2.7.2.686 [id number] [facility] 2021-09-15 08:00:00 2021-09-15 08:00:00 Outpatient TO MARTINEZ [facility] [id number] [facility] 2021-09-15 00:00:00 2021-09-15 00:00:00 Telephone J Luis Alcaraz [facility] 1.840.114 350.1.13.10 4.2.7.2.686 [id number] [facility] 2021-08-18 15:42:32 2021-08-18 23:59:00 Outpatient R TO DELACRUZ [facility] [id number] [facility] 2021-08-18 15:42:32 2021-08-18 23:59:00 Hospital Encounter To Delacruz [facility] 1.840.114 350.1.13.10 4.2.7.2.686 [id number] [facility] 2021-08-16 15:30:00 2021-08-16 16:18:01 Outpatient R TO DELACRUZ [facility] [id number] [facility] 2021-08-16 15:30:00 2021-08-16 16:18:01 Outpatient R TO DELACRUZ [facility] [id number] [facility] 2021-08-16 15:29:29 2021-08-16 16:18:01 Office Visit To Delacruz [facility] 1..840.114 350.1.13.10 4.2.7.2.686 [id number] [facility] 2021-08-16 00:00:00 2021-08-16 00:00:00 Telephone To Delacruz [facility] 1..840.114 350.1.13.10 4.2.7.2.686 [id number] [facility] 2020-12-31 00:00:00 2020-12-31 00:00:00 Orders Only Doctor Unassigned, [place] [facility] 1.2.840.114 350.1.13.10 4.2.7.2.686 [id number] [facility] 2020-09-23 13:30:00 2020-09-23 13:30:00 Outpatient J LUIS YOUNG [facility] [id number] [facility] Notes History of Present Illness3-4 years of memory loss and tremor. Episodes of anxiety several times daily.ObjectiveSurgical HistoryFamily HistorySocial HistoryAllergiesMedicationsReview of SystemsMotor Date/Time Note Provider Source 2025-01-14 10:12:52 [facility] 2025-01-14 10:12:52 Ranjit Najera MD - 01/14/2025 9:15 AM CDT Subjective Ivette Vu is a 74 y.o. female presenting with memory loss. Memory Loss Agitation Prozac recently increased to 20 mg. Had labs with PCP. Had a CT brain. Did have some hallucinations as well. Difficulty finishing a sentence. On Seroquel which helps with sleep, didn't make the tremor worse. Tried Exelon patch, caused a rash. Past Medical History She has a past medical history of Hypertension, Memory loss, and Thyroid disease. She has a past surgical history that includes Hysterectomy; Appendectomy; and Cholecystectomy. Family History: Problem Relation Name Age of Onset Dementia Brother Dementia Mother's Sister She reports that she has never smoked. She has been exposed to tobacco smoke. She has never used smokeless tobacco. She reports that she does not drink alcohol and does not use drugs. Patient has no known allergies. Current Outpatient Medications Medication Sig Dispense Refill FLUoxetine (PROzac) 20 MG capsule Take 20 mg by mouth 1 time each day. levothyroxine (Synthroid, Levoxyl) 100 MCG tablet Take 100 mcg by mouth in the morning. Take before meals. losartan (Cozaar) 100 MG tablet Take 1 tablet by mouth 1 time each day. meclizine (Antivert) 25 MG tablet Take 25 mg by mouth if needed for dizziness. nebivolol (Bystolic) 10 MG tablet Take 1 tablet by mouth 1 time each day. niacin (True Vitamin B3) 50 MG tablet Take 50 mg by mouth 1 time each day. QUEtiapine (SEROquel) 100 MG tablet Take 100 mg by mouth 1 time each day. galantamine (Razadyne) 4 MG tablet Take 1 tablet by mouth in the morning and 1 tablet in the evening. 60 tablet 3 No current facility-administered medications for this visit. Musculoskeletal: Positive for gait problem. Neurological: Positive for tremors. Psychiatric/Behavioral: Positive for agitation, confusion and sleep disturbance. Vitals: 01/14/25 0932 BP: 118/87 Pulse: 68 Resp: 16 Temp: 36.7 ?C (98.1 ?F) SpO2: 98% Vitals reviewed. Constitutional: Appearance: Normal appearance. HENT: Head: Normocephalic. Eyes: General: Lids are normal. Extraocular Movements: Extraocular movements intact. Pupils: Pupils are equal, round, and reactive to light. Cardiovascular: Rate and Rhythm: Normal rate and regular rhythm. Pulmonary: Effort: Pulmonary effort is normal. Breath sounds: Normal breath sounds. Abdominal: General: Bowel sounds are normal. Musculoskeletal: General: Normal range of motion. Cervical back: Normal range of motion. Skin: General: Skin is warm and dry. Neurological: Motor: Motor strength is normal. Coordination: Coordination is intact. Deep Tendon Reflexes: Reflexes are normal and symmetric. Psychiatric: Mood and Affect: Mood normal. Speech: Speech normal. Thought Content: Thought content normal. Mental Status Oriented only to person. Speech is normal. Mixed aphasia present. Follows one-step commands. Difficulty naming objects. 2/6 pictures. Not oriented to year, month day . CN II: Visual acuity is normal. Visual epstein full to confrontation. CN III, IV, : Extraocular movements intact bilaterally. Normal lids and orbits bilaterally. Pupils equal round and reactive to light bilaterally. CN V: Facial sensation is normal. CN VII: Full and symmetric facial movement. CN VIII: Hearing is normal. CN IX, X: Palate elevates symmetrically. Normal gag reflex. CN XI: Shoulder shrug strength is normal. CN XII: Tongue midline without atrophy or fasciculations. Normal muscle bulk throughout. Normal muscle tone. The following abnormal movements were seen: Strength is 5/5 throughout all four extremities. Mild tremor and cogwheeling. Sensation is intact to light touch, pinprick, vibration and proprioception in all four extremities. Deep tendon reflexes are 2+ and symmetric in all four extremities. Coordination without dysmetria. Casual gait: Shuffling gait. Slightly shuffling and unsteady. Relevant Results Diagnoses and all orders for this visit: Moderate Lewy body dementia with mood disturbance (HCC) Other orders - galantamine (Razadyne) 4 MG tablet; Take 1 tablet by mouth in the morning and 1 tablet in the evening. Patient does quite poorly on mental status testing. 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 Will request prior labs and imaging for review. 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 Will start galantamine 4 mg twice daily. Risks, benefits, side effects reviewed with patient. [facility] Due Date Last Done Comments Lipid Panel 1950 Medicare Annual Wellness (AWV) 1950 DTaP/Tdap/Td Vaccines (1 - Tdap) 1967 Pneumococcal Vaccine: 50+ Years (1 of 1 - PCV) 1998 Zoster Vaccines (1 of 2) 1998 Respiratory Syncytial Virus (RSV) or >=60 (1 - 1-dose 75+ series) 2023 Influenza Vaccine (Season Ended) 2025 08/13/2021, 06/29/2020 HIB Vaccines Aged Out No longer eligi ble based on patient's age to complete this topic HPV Vaccines Aged Out No longer eligi ble based on patient's age to complete this topic Hepatitis A Vaccines Aged Out No long er eligible based on patient's age to complete this topic Hepatitis B Vaccines Aged Out No long er eligible based on patient's age to complete this topic IPV Vaccines Aged Out No longer eligi ble based on patient's age to complete this topic Meningococcal Vaccine Aged Out No narayan opal eligible based on patient's age to complete this topic Rotavirus Vaccines Aged Out No longer eligible based on patient's age to complete this topic [id number] 10:12:52 Diagnosis Moderate Lewy body dementia with mood disturbance (HCC) - [id number] 10:12:52 [facility]
[2025-01-27] MEDS ORDERED: ONDANSETRON 4 MG (ODT) TAB ONE (06:10)
[2025-01-27] MEDS ORDERED: DICYCLOMINE HCL 10 MG CAP ONE (06:10)
[2025-01-27] MEDS ORDERED: BISACODYL E.C. 5 MG TAB PO ONE (06:10)
--- NOTE | 2025-01-27 06:14 | RAD REPORT ---
EXAMINATION: CT ABDOMEN PELVIS WITHOUT IV CONTRAST CLINICAL INDICATION: Female, 74 years old. PAIN TECHNIQUE: CT abdomen and pelvis was performed, without IV contrast, as per department protocol. Axia l, sagittal and coronal reconstructions were obtained. One or more of the following dose reduction techniques were used: Automated exposure control, adjustment of the mA and/or kV according to the pat ient size, and/or iterative reconstruction. Unless otherwise specified, incidental findings do not require dedicated imaging follow-up. PD2234. IV CONTRAST: Not administered. COMPARISON: 01/11/2020 FINDINGS: The lack of intravenous contrast limits the sensitivity of this exam for evaluation of solid visceral organs, vascular structures, and retroperitoneum. LOWER CHEST: Trace right pleural effusion. Normal heart size. Mild circumferential thickening of the distal esophagus which could reflect esophagitis. UPPER GI: No significant focal abnormality. LIVER: No significant focal abnormality. GALLBLADDER/BILE DUCTS: Cholecystectomy. No significant biliary ductal dilatation. PANCREAS: Atrophy, but otherwise unremarkable. SPLEEN: Unremarkable. ADRENALS: No adrenal masses. KIDNEYS AND URETERS: No hydronephrosis. No suspicious renal mass. No renal calculi identified. No ure teral calculi. ABDOMINAL AORTA AND OTHER VESSELS: Mild atherosclerotic changes. PERITONEUM: No abnormal free fluid. No free air. LYMPH NODES: No pathologic lymphadenopathy. ABDOMINAL WALL: Unremarkable SMALL BOWEL/COLON: Nonspecific small bowel fluid. Nonvisualized appendix but no secondary signs of ac augustine appendicitis. Moderate formed stool burden could indicate constipation. URINARY BLADDER: Underdistended but grossly unremarkable. REPRODUCTIVE ORGANS: Uterus surgically absent. No adnexal abnormality. MUSCULOSKELETAL: Multilevel degenerative changes in the spine. No acute fracture. ADDITIONAL FINDINGS: None. IMPRESSION: No acute findings in the abdomen or pelvis. Nonspecific small bowel fluid could reflect an enteritis. Incidental findings as noted above. Electronically signed by: Heri Espinoza MD 01/27/2025 06:10 AM CDT Due to temporary technical issues with the [employer] reporting system, reports are being katarzyna d by the in-house radiologist without review as a courtesy to ensure prompt reporting the interpreting radiologist is fully responsible for the content of the report. Transcribed Date/Time: 01/27/2025 6:14 AM
--- NOTE | 2025-01-27 06:55 | ER ---
Nurse's Notes [facility] Name: Ivette Vu Age: 74 yrs Sex: Female : 1950 Arrival Date: 01/27/2025 Time: 02: Bed 20 Private MD: Diagnosis: Slow transit constipation Presentation: 01/27 02:31 Chief complaint: Patient states: ABDOMINAL CRAMPING , UNABLE TO HAVE A BOWEL MOVEMENT ha1 FOR THE PAST FIVE DAYS. 02: Coronavirus screen: Client denies travel out of the [place] in the last 14 days. Ebola ha1 Screen: No symptoms or risks identified at this time. Initial Sepsis Screen: Does the patient meet any 2 criteria? No. Patient's initial sepsis screen is negative. Does the patient have a suspected source of infection? No. Patient's initial sepsis screen is negative. Risk Assessment: Do you want to hurt yourself or someone else? Patient reports no desire to harm self or others. Onset of symptoms was January 27, 2025. : Method Of Arrival: EMS: [facility] ha1 02:31 Acuity: KRISHNA 3 ha1 Triage Assessment: 02:31 General: Appears uncomfortable, Behavior is calm, cooperative. Pain: Complains of pain ha1 in abdomen Unable to use pain scale. FLACC scale score is 4 out of 10. Neuro: Level of Consciousness is awake, obeys commands, Oriented to person. Cardiovascular: Capillary refill < 3 seconds Patient's skin is warm and dry. Respiratory: Airway is patent Respiratory effort is even, unlabored, Respiratory pattern is regular, symmetrical. GI: Reports cramping. : No signs and/or symptoms were reported regarding the genitourinary system. Derm: Skin is pink, warm \T\ dry. Historical: - Allergies: 02: Sulfa (Sulfonamide Antibiotics); ha1 - Home Meds: 02: levothyroxine oral [Active]; losartan oral [Active]; ha1 - PMHx: 02: Hypertension; Thyroid problem; ha1 - Immunization history:: Adult Immunizations up to date. - Infectious Disease History:: Denies. - Social history:: Smoking status: unknown. - Family history:: not pertinent. Screenin:47 [facility] ED Fall Risk Assessment (Adult) History of falling in the last 3 months, bm8 including since admission Yes- physiologic fall (2 pts) Confusion or Disorientation Yes (5 pts) Intoxicated or Sedated No (0 pts) Impaired Gait Yes (1 pt) Mobility Assist Device Used No (0 pt) Altered Elimination No (0 pt) Score/Fall Risk Level 3 or more points = High Risk Oriented to surroundings, Maintained a safe environment, Educated pt \T\ family on fall prevention, incl call for assistance when getting out of bed, Assessed \T\ reinforced patient's understanding of fall precautions, Hourly rounding (assess needs \T\ fall precautionary measures) done, Used ambulatory aids as needed (educated on \T\ assisted with), Used gait belt as appropriate Implemented a Fall Risk Plan of Care. Abuse screen: Denies threats or abuse. Nutritional screening: No deficits noted. Tuberculosis screening: No symptoms or risk factors identified. Assessment: 04:47 Reassessment: Patient appears in no apparent distress at this time. Patient and/or bm8 family updated on plan of care and expected duration. Pain level reassessed. Patient is alert, oriented x 3, equal unlabored respirations, skin warm/dry/pink. Pt up to restroom with assist. GI: Bowel sounds hypoactive in right upper quadrant, left upper quadrant and left lower quadrant Abdomen is tender to palpation X 4 quads. 06:28 Reassessment: Patient appears in no apparent distress at this time. Patient and/or bm8 family updated on plan of care and expected duration. Pain level reassessed. Patient is alert, oriented x 3, equal unlabored respirations, skin warm/dry/pink. Patient states feeling better. Vital Signs: 02:31 BP 134 / 72; Pulse 72; Resp 16 S; Temp 99(T); Pulse Ox 98% on R/A; Weight 57.15 kg; ha1 Height 5 ft. 3 in. ; 04:47 BP 133 / 73; Pulse 68; Resp 18; Temp 99; Pulse Ox 99% ; Pain 5/10; bm8 06:28 BP 126 / 83; Pulse 63; Resp 18; Temp 99; Pulse Ox 96% ; Pain 4/10; bm8 02:31 Body Mass Index 22.32 (57.15 kg, 160.02 cm) ha1 04:47 Pain Scale: Adult bm8 06:28 Pain Scale: Adult bm8 Piru Coma Score: 04:47 Eye Response: spontaneous(4). Motor Response: obeys commands(6). Verbal Response: bm8 oriented(5). Total: 15. 06:28 Eye Response: spontaneous(4). Motor Response: obeys commands(6). Verbal Response: bm8 oriented(5). Total: 15. 21:08 Eye Response: spontaneous(4). Motor Response: obeys commands(6). Verbal Response: sp4 oriented(5). Total: 15. ED Course: 02:27 Patient arrived in ED. [email or web address] 02:28 Stuart Rollins MD is Attending Physician. sp4 02:53 Triage completed. ha1 03:58 Abdomen In Process Unspecified. EDMS 04:47 Marbin Monreal, RN is Primary Nurse. bm8 04:47 Patient has correct armband on for positive identification. Bed in low position. Call bm8 light in reach. Side rails up X2. Adult w/ patient. Client placed on continuous cardiac and pulse oximetry monitoring. NIBP monitoring applied. Pulse ox on. NIBP on. Door closed. Noise minimized. Visitors limited. Warm blanket given. Pillow given. Verbal reassurance given. Head of bed elevated. 04:47 No provider procedures requiring assistance completed. Patient maintains SpO2 bm8 saturation greater than 95% on room air. 06:10 Warm blanket given. [email or web address] 07:05 Provided Education on: post er care to . bm8 07:05 Patient did not have IV access during this emergency room visit. bm8 07:06 Arm band placed on right wrist. bm8 Administered Medications: 06:30 Drug: Dulcolax PO Delayed Release Tablet 10 mg PO once Route: PO; bm8 07:07 Follow up: Response: No adverse reaction bm8 06:30 Drug: Dicyclomine PO 20 mg PO once Route: PO; bm8 07:06 Follow up: Response: No adverse reaction bm8 06:30 Drug: Ondansetron PO 4 mg PO once Route: PO; bm8 07:06 Follow up: Response: No adverse reaction bm8 Medication: 04:47 VIS not applicable for this client. bm8 Outcome: 06:54 Discharge ordered by . sp4 07:05 Discharged to home via wheelchair, bm8 07:05 Condition: stable 07:05 Discharge instructions given to patient, family, Instructed on discharge instructions, follow up and referral plans. no drinking with medication, no driving heavy equipment, medication usage, safety practices, Demonstrated understanding of instructions, follow-up care, medications, Prescriptions given X 1, 07:06 Patient left the ED. bm8 Signatures: Dispatcher [employer] EDMS Pinky Francesca [email or web address] Vanessa Bolden RN RN ha1 Stuart Rollins MD MD sp4 Marbin Monreal RN RN bm8 Milady Edmondson [email or web address]
--- NOTE | 2025-01-27 06:55 | EDPHYS ---
Physician Documentation [facility] Name: Ivette Vu Age: 74 yrs Sex: Female : 1950 Arrival Date: 01/27/2025 Time: 02:26 Bed 20 Private MD: ED Physician Stuart Rollins HPI: 01/27 06:47 This 74 yrs old Female presents to ER via EMS with complaints of Abdominal sp4 Pain. 21:08 74-year-old female presents with complaint of moderate abdominal pain. Several days of sp4 constipation as well. Patient has dementia. Patient is primary accounting assistant. Historical: - Allergies: 02:31 Sulfa (Sulfonamide Antibiotics); ha1 - Home Meds: :31 levothyroxine oral [Active]; losartan oral [Active]; ha1 - PMHx: :31 Hypertension; Thyroid problem; ha1 - Immunization history:: Adult Immunizations up to date. - Infectious Disease History:: Denies. - Social history:: Smoking status: unknown. - Family history:: not pertinent. ROS: 21:08 Constitutional: Negative for fever, chills, and weight loss, positive for abdominal sp4 discomfort and several days of constipation 21:08 All other systems are negative, Exam: 21:08 Constitutional: This is a well developed, well nourished patient who is awake, alert, sp4 and in no acute distress. Patient is moderately demented appears in no distress Head/Face: Normocephalic, atraumatic. Eyes: Pupils equal round and reactive to light, extra-ocular motions intact. Lids and lashes normal. Conjunctiva and sclera are not injected. Cornea within normal limits. Periorbital areas with no swelling, redness, or edema. ENT: Nares patent. No nasal discharge, no septal abnormalities noted. Tympanic membranes are normal and external auditory canals are clear. Oropharynx with no redness, swelling, or masses, exudates, or evidence of obstruction, uvula midline. Mucous membranes moist. Neck: Trachea midline, no thyromegaly or masses palpated, and no cervical lymphadenopathy. Supple, full range of motion without nuchal rigidity, or vertebral point tenderness. Chest/axilla: Normal chest wall appearance and motion. Nontender with no deformity. No lesions are appreciated. Cardiovascular: Regular rate and rhythm with a normal S1 and S2. No gallops, murmurs, or rubs. Normal PMI, no JVD. No pulse deficits. Respiratory: Lungs have equal breath sounds bilaterally, clear to auscultation and percussion. No rales, rhonchi or wheezes noted. No increased work of breathing, no retractions or nasal flaring. Abdomen/GI: Soft, with normal bowel sounds. No distension or tympany. No guarding or rebound. No evidence of tenderness throughout. Back: No spinal tenderness. No costovertebral tenderness. Female : Normal external genitalia. 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 No blood or melena. Skin: Warm, dry with normal turgor. Normal color with no rashes, no lesions, and no evidence of cellulitis. MS/ Extremity: Pulses equal, no cyanosis. Neurovascular intact. Full, normal range of motion. Neuro: Awake and alert, GCS 15, oriented to person, Cranial nerves II-XII grossly intact. Motor strength 5/5 in all extremities. Sensory grossly intact. Dementia limits examination, overall patient is cooperative. Vital Signs: 02:31 BP 134 / 72; Pulse 72; Resp 16 S; Temp 99(T); Pulse Ox 98% on R/A; Weight 57.15 kg; ha1 Height 5 ft. 3 in. ; 04:47 BP 133 / 73; Pulse 68; Resp 18; Temp 99; Pulse Ox 99% ; Pain 5/10; bm8 06:28 BP 126 / 83; Pulse 63; Resp 18; Temp 99; Pulse Ox 96% ; Pain 4/10; bm8 02:31 Body Mass Index 22.32 (57.15 kg, 160.02 cm) ha1 04:47 Pain Scale: Adult bm8 06:28 Pain Scale: Adult bm8 Vivian Coma Score: 04:47 Eye Response: spontaneous(4). Motor Response: obeys commands(6). Verbal Response: bm8 oriented(5). Total: 15. 06:28 Eye Response: spontaneous(4). Motor Response: obeys commands(6). Verbal Response: bm8 oriented(5). Total: 15. 21:08 Eye Response: spontaneous(4). Motor Response: obeys commands(6). Verbal Response: sp4 oriented(5). Total: 15. MDM: 06:47 ED course: IV CONTRAST: Not administered. COMPARISON: 01/11/2020 FINDINGS: The lack of sp4 intravenous contrast limits the sensitivity of this exam for evaluation of solid visceral organs, vascular structures, and retroperitoneum. LOWER CHEST: Trace right pleural effusion.Normal heart size. Mild circumferential thickening of the distal esophagus which could reflect esophagitis. UPPER GI: No significant focal abnormality. LIVER: No significant focal abnormality. GALLBLADDER/BILE DUCTS: Cholecystectomy. No significant biliary ductal dilatation. PANCREAS: Atrophy, but otherwise unremarkable. SPLEEN: Unremarkable. ADRENALS: No adrenal masses. KIDNEYS AND URETERS: No hydronephrosis.No suspicious renal mass.No renal calculi identified.No ureteral calculi. ABDOMINAL AORTA AND OTHER VESSELS: Mild atherosclerotic changes. PERITONEUM: No abnormal free fluid. No free air. LYMPH NODES: No pathologic lymphadenopathy. ABDOMINAL WALL: Unremarkable SMALL BOWEL/COLON: Nonspecific small bowel fluid.Nonvisualized appendix but no secondary signs of acute appendicitis. Moderate formed stool burden could indicate constipation. URINARYBLADDER: Underdistended but grossly unremarkable. REPRODUCTIVE ORGANS: Uterus surgically absent. No adnexal abnormality. MUSCULOSKELETAL: Multilevel degenerative changes in the spine. No acute fracture. ADDITIONAL FINDINGS: None. IMPRESSION: No acute findings in the abdomen or pelvis. Nonspecific small bowel fluid could reflect an enteritis. Incidental findings as noted above.. 06:51 Differential diagnosis: gastritis, gastroesophageal reflux disease, Hepatitis, sp4 pancreatitis. Data reviewed: vital signs, nurses notes. Consideration of Admission/Observation Escalation of care including admission/observation considered. 06:54 Medical Screening Exam initiated sp4 21:11 ED course: CT does not reveal fecal impaction, reveals moderate constipation, will sp4 recommend mild laxative and addition of fiber in the diet.. 01/27 03:39 Order name: Abdomen EDMS Administered Medications: 06:30 Drug: Dulcolax PO Delayed Release Tablet 10 mg PO once Route: PO; bm8 07:07 Follow up: Response: No adverse reaction bm8 06:30 Drug: Dicyclomine PO 20 mg PO once Route: PO; bm8 07:06 Follow up: Response: No adverse reaction bm8 06:30 Drug: Ondansetron PO 4 mg PO once Route: PO; bm8 07:06 Follow up: Response: No adverse reaction bm8 Disposition Summary: 01/27/25 06:54 Discharge Ordered Notes: Location: Home sp4 Problem: new sp4 Symptoms: have improved sp4 Condition: Stable sp4 Diagnosis - Slow transit constipation sp4 Followup: sp4 - With: Private Physician - When: 7 - 10 days - Reason: Recheck today's complaints Discharge Instructions: - Discharge Summary Sheet sp4 - Constipation, Adult, [id number] sp4 Forms: - Patient Portal Instructions sp4 Prescriptions: - docusate sodium 250 mg Oral capsule - take 1 capsule ORAL route once daily PRN constipation; 30 capsule; Refills: 0, sp4 Product Selection Permitted Signatures: Dispatcher [employer] Vanessa Arzate RN RN ha1 Stuart Rollins MD MD sp4 Marbin Monreal RN RN bm8 Corrections: (The following items were deleted from the chart) 03:40 02:29 Abdomen Pelvis Wo [id number] ordered. EDMS EDMS
[2025-01-27 07:34] VITALS: TEMP 99
[2025-01-27 07:38] VITALS: BP 126/83; O2SAT 96
== END 2025-01-27 07:06 | disposition home or self-care (01) ==
LOC: ER 02:26
DX: K59.01 Slow transit constipation (principal)
CPT/HCPCS: 74176; Q0162

== ENCOUNTER 2025-01-27 13:14 | Observation (INO) | payer OTHER ==
--- OUTSIDE RECORDS SUMMARY | 2025-01-27 13:17 | XMS REPORT | Continuity of Care Document ---
Author Name Unknown Address [address] [facility] [address] [place] [address] [facility] Address [address] [facility] [address] [place] [address] Care Team Providers Care Shampoo Technician Name Role Phone Millie Stark MD, [facility] Primary Care Physician + [phone] RANJIT NAJERA Attending Clinician Unavail able Ranjit Najera MD Attending Clinician [phone] WILMAN MCDANIELS Attending Clinician Unavailable VALENTE HERNANDEZ Attending Clinician Unavailable Doctor Unassigned, [place] Attending Clinician U J Luis Newman MD Attending Clinician [phone] J LUIS ALCARAZ Attending Clinician Unavailable TO DELACRUZ K.HJerad Attending Clinician UnavailWilman Cooper MD Attending Clinician [phone] Debbie Solano MA Attending Clinician Unavailkelin Delacruz MD, To K.HJerad Attending Clinician + [phone] TO DELACRUZ K.HJerad Admitting Clinician Caroline hutchinson Payers Payer Name Policy Type Policy Number Effective Date Expirati on Date Source MEDICARE PART A AND B [id number] 2013 00:00:00 2020 00:00:00 [facility] MEDICARE ADVANTAGE Medicare [id number] 2024 00:00:00 [employer] MEDICARE ADVANTAGE [id number] 2021 00:00:00 Problems Condition Name Condition Details Condition Category Status Onset Date Resolution Date Last Treatment Date Treating Clinician Comments Source 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 Lewy body dementia with mood disturbanc e Disease Active 01-14 00:00: 00 Vipin garber Augustnie Dexter Hypertensi on Hypertensi on Disease Active 2019-10 00:00: 00 Vipin garber Augustine Epic Hypothyroi dism Hypothyroi dism Disease Active 2019-10 00:00: 00 Vipin garber Augustine Dexter Postmenopa usal osteoporos is Postmenopa usal osteoporos is Disease Active 2019-10 00:00: 00 Vipin garber Augustinechrissy Renteria Allergies, Adverse Reactions, Alerts Allergy Name Allergy Type Status Severity Reaction(s) Onset Date Inactive Date Treating Clinician Comments Source Sulfa (Sulfona mide Antibiot ics) Propensi ty to adverse reaction s Active Nausea and/or Vomiting 2019-10 00:00: 00 GI upset [facility] SULFA (SULFONA MIDE ANTIBIOT ICS) Drug Class Active N/V 2019-10 00:00: 00 [facility] Social History Social Habit Start Date Stop Date Quantity Comments Source Exposure to SARS-CoV-2 (event) Not sure [facility] Sexual orientation [facility] History of tobacco use Passive smoker [facility] ASSERTION Possible [facility] Gender identity Neo kayla [facility] Tobacco use and exposure 2025-01-14 00:00:00 2025-01-14 00:00:00 Smokeless tobacco non-user [facility] Alcoholic beverage intake 2025-01-14 00:00:00 2025-01-14 00:00:00 Lifetime non-drinker (finding) [facility] History of Social function 2025-01-14 00:00:00 2025-01-14 00:00:00 [facility] Alcohol intake 2021-09-26 00:00:00 2021-09-26 00:00:00 Current drinker of alcohol (finding) [facility] History SDOH Alcohol Frequency 2020-09-23 00:00:00 2020-09-23 00:00:00 99 [facility] History SDOH Alcohol Std Drinks 2020-09-23 00:00:00 2020-09-23 00:00:00 99 [facility] History SDOH Alcohol Binge 2020-09-23 00:00:00 2020-09-23 00:00:00 99 [facility] Alcohol Comment 2020-09-23 00:00:00 2020-09-23 00:00:00 very rare [facility] Sex Assigned At 1950 00:00:00 1950 00:00:00 [facility] Smoking Status Start Date Stop Date Source Never smoked tobacco Vipin Bradshaw [facility] Medications Ordered Medication Name Filled Medication Name [...] mouth 1 time each day. Vipin Bradshaw [facility] meclizine (Antivert) 25 MG tablet meclizine (Antivert) 25 MG tablet 01-14 09:19: 05 Yes 25mg Take 25 mg by mouth if needed for dizziness. Vipin Bradshaw [facility] galantamine (Razadyne) 4 MG tablet galantamine (Razadyne) 4 MG tablet 01-14 00:00: 00 01-14 23:59 :00 No 4mg Q.5D Take 1 tablet by mouth in the morning and 1 tablet in the evening. Vipin Bradshaw [facility] nebivolol (Bystolic) 10 MG tablet nebivolol (Bystolic) 10 MG tablet 12-24 00:00: 00 Yes 1{tbl} QD Take 1 tablet by mouth 1 time each day. Vipin Bradshaw [facility] levothyroxi ne (Synthroid, Levoxyl) 100 MCG tablet levothyroxi ne (Synthroid, Levoxyl) 100 MCG tablet 12-21 00:00: 00 Yes 100ug Take 100 mcg by mouth in the morning. Take before meals. Vipin Bradshaw [facility] QUEtiapine (SEROquel) 100 MG tablet QUEtiapine (SEROquel) 100 MG tablet 12-16 00:00: 00 Yes 100mg QD Take 100 mg by mouth 1 time each day. Vipin Renteria losartan (Cozaar) 100 MG tablet losartan (Cozaar) 100 MG tablet 11-16 00:00: 00 Yes 1{tbl} QD Take 1 tablet by mouth 1 time each day. Vipin Renteria zoledronic acid/mannit ol-water (RECLAST IV) 2020-10 14:25: 22 Yes Inject intravenou sly. [facility] calcium citrate/vit rincon D3 (CITRACAL + D ORAL) 2020-10 14:25: 22 Yes Take by mouth. [facility] FLUoxetine 20 mg capsule 2019-10 13:42: 29 Yes 20mg Take 20 mg by mouth daily. [facility] levothyroxi ne 100 mcg tablet 2019-10 00:00: 00 Yes TK 1 T PO QAM OES [facility] losartan 100 mg tablet 2019-10 00:00: 00 Yes TK 1 T PO D [facility] BYSTOLIC 10 mg tablet 2019-10 00:00: 00 Yes TK 1 T PO D [facility] meclizine 25 mg tablet 2019-10 00:00: 00 Yes TK 1 T PO TID PRN [facility] Vital Signs Vital Name Observation Time Observation Value Comments S ernesto Systolic blood pressure 2025-01-14 09:32:00 118 mm[Hg] [facility] Diastolic blood pressure 2025-01-14 09:32:00 87 mm[Hg] [facility] Heart rate 2025-01-14 09:32:00 68 /min Carla chavez [facility] Body temperature 2025-01-14 09:32:00 36.72 Joaquina [facility] Respiratory rate 2025-01-14 09:32:00 16 /min [facility] Body height 2025-01-14 09:32:00 154.9 cm Neo garza [facility] Body weight 2025-01-14 09:32:00 55.792 kg Neoimani Yepezann [facility] BMI 2025-01-14 09:32:00 23.24 kg/m2 Neoimani garza [facility] Oxygen saturation in Arterial blood by Pulse oximetry 2025-01-14 09:32:00 98 /min [facility] Systolic blood pressure 2025-01-14 09:32:00 118 mm[Hg] [facility] Diastolic blood pressure 2025-01-14 09:32:00 87 mm[Hg] [facility] Heart rate 2025-01-14 09:32:00 68 /min Memgodwin ial [facility] Body temperature 2025-01-14 09:32:00 36.72 Joaquina [facility] Respiratory rate 2025-01-14 09:32:00 16 /min [facility] Body height 2025-01-14 09:32:00 154.9 cm Neoimani garza [facility] Body weight 2025-01-14 09:32:00 55.792 kg Neoimani garza [facility] BMI 2025-01-14 09:32:00 23.24 kg/m2 [facility] saturation in Arterial blood by Pulse oximetry 2025-01-14 09:32:00 98 /min [facility] Procedures Procedure Date / Time Performed Performing Clinicia n Source EXTERNAL PROVIDER RECORDS 2021-11-02 06:01:00 Doctor Unassigned, [place] [facility] Encounters Start Date/Time End Date/Time Encounter Type Admission Type Attending [facility] Care Facility Care Department Encounter ID Source 2022-05-18 12:25:51 Outpatient [facility] [id number] [facility] 2025-01-14 09:15:29 2025-01-14 10:09:11 Outpatient RANJIT NAJERA CHRISSY [facility] [id number] [facility] 2025-01-14 09:15:00 2025-01-14 10:09:11 Consult Ranjit Najera [id number] Vipin gabrer Augustine [facility] 2022-06-21 13:30:00 2022-06-21 13:30:00 Outpatient VALENTE HERNANDEZ [facility] [id number] [facility] 2021-11-02 00:00:00 2021-11-02 00:00:00 Orders Only Doctor Unassigned, [place] [facility] 1..114 350.1.13.10 4.2.7.2.686 [id number] [facility] 2021-10-24 00:00:00 2021-10-24 00:00:00 Telephone J Luis Alcaraz [facility] 1..114 350.1.13.10 [id number] [id number] [facility] 2021-10-17 00:00:00 2021-10-17 00:00:00 Outpatient HUSEYIN YOUNGN [facility] [id number] [facility] 2021-10-03 00:00:00 2021-10-03 00:00:00 Telephone Kieran J Luis [facility] 1..114 350.1.13.10 4.2.7.2.686 [id number] [facility] 2021-09-30 00:00:00 2021-09-30 00:00:00 Telephone Kieran J Luis [facility] 1..114 350.1.13.10 4.2.7.2.686 [id number] [facility] 2021-09-29 14:30:00 2021-09-29 14:30:00 Outpatient TO MARTINEZ [facility] [id number] [facility] 2021-09-29 14:30:00 2021-09-29 14:30:00 Outpatient TO MARTINEZ [facility] [id number] [facility] 2021-09-28 13:00:00 2021-09-28 13:20:00 Office Visit Wilman Mcdaniels [facility] 1.114 350.1.13.10 4.2.7.2.686 [id number] [facility] 2021-09-28 13:00:00 2021-09-28 13:00:00 Outpatient Aimee WILMAN MCDANIELS [facility] [id number] [facility] 2021-09-26 14:00:00 2021-09-26 15:10:15 Outpatient J LUIS YOUNG [facility] [id number] [facility] 2021-09-26 13:47:46 2021-09-26 15:10:15 Office Visit J Luis Alcaraz [facility] 1.114 350.1.13.10 4.2.7.2.686 [id number] [facility] 2021-09-26 14:00:00 2021-09-26 14:00:00 Outpatient R J ULIS ALCARAZ [facility] [id number] [facility] 2021-09-26 14:00:00 2021-09-26 14:00:00 Outpatient J LUIS YOUNG [facility] [id number] [facility] 2021-09-26 00:00:00 2021-09-26 00:00:00 Orders Only Doctor Unassigned, [place] [facility] 1.114 350.1.13.10 4.2.7.2.686 [id number] [facility] 2021-09-20 00:00:00 2021-09-20 00:00:00 Pre Visit Outreach Debbie Solano 1.114 350.1.13.10 4.2.7.2.686 [id number] [facility] 2021-09-15 08:00:00 2021-09-15 08:00:00 Outpatient TO MARTINEZ [facility] [id number] [facility] 2021-09-15 00:00:00 2021-09-15 00:00:00 Telephone J Luis Alcaraz [facility] 1..840.114 350.1.13.10 4.2.7.2.686 [id number] [facility] 2021-08-18 15:42:32 2021-08-18 23:59:00 Outpatient R TO DELACRUZ [facility] [id number] [facility] 2021-08-18 15:42:32 2021-08-18 23:59:00 Hospital Encounter To Delacruz [facility] 1..840.114 350.1.13.10 4.2.7.2.686 [id number] [facility] 2021-08-16 15:30:00 2021-08-16 16:18:01 Outpatient R TO DELACRUZ [facility] [id number] [facility] 2021-08-16 15:30:00 2021-08-16 16:18:01 Outpatient R TO DELACRUZ [facility] [id number] [facility] 2021-08-16 15:29:29 2021-08-16 16:18:01 Office Visit To Delacruz [facility] 1..840.114 350.1.13.10 4.2.7.2.686 [id number] [facility] 2021-08-16 00:00:00 2021-08-16 00:00:00 Telephone To Delacruz [facility] [id number] 350.1.13.10 4.2.7.2.686 [id number] [facility] 2020-12-31 00:00:00 2020-12-31 00:00:00 Orders Only Doctor Unassigned, [place] [facility] 1.2.840.114 350.1.13.10 4.2.7.2.686 [id number] [facility] 2020-09-23 13:30:00 2020-09-23 13:30:00 Outpatient J LUIS YOUNG [facility] [id number] [facility] Notes History of Present Illness3-4 years of memory loss and tremor. Episodes of anxiety several times daily.ObjectiveSurgical HistoryFamily HistorySocial HistoryAllergiesMedicationsReview of SystemsMotor Date/Time Note Provider Source 2025-01-14 10:12:52 [facility] 2025-01-14 10:12:52 Ranjit Najera MD - 01/14/2025 [...] Risks, benefits, side effects reviewed with patient. [facility] Due Date Last Done Comments Lipid Panel [...] on patient's age to complete this topic [id number] 10:12:52 Diagnosis Moderate Lewy body dementia with mood disturbance (HCC) - [id number] 10:12:52 Katty Bradshaw
[2025-01-27 14:01] LABS: Absolute Basophils 0.1 K/uL (0-0.5); Absolute Lymphocytes (CBC) 1.1 K/uL (0.7-4.9); Basophils % 0.7 % (0-1.3); Eosinophils % 0.7 % (0-4.4); Hematocrit 29.6 % (36.0-45.0); Hemoglobin 10.6 g/dL (12.0-15.0); Lymphocytes % 15.3 % (15.3-44.8); MCH 30.5 pg (27.0-35.0); MCHC 35.8 g/dL (32.0-36.0); MCV 85.2 fL (80-100); Neutrophils % 69.3 % (41.7-73.7); Platelets 239 thou/uL (152-406); RBC Red Blood Cell Count 3.47 M/uL (3.86-4.86); Red Cell Distribution Width 12.7 % (12.1-15.2)
[2025-01-27 14:15] LABS: Albumin 3.2 g/dL (3.4-5.0); Albumin/Globulin Ratio 0.7 (1.1-1.8); Anion Gap 9.6 mEq/L (5.0-15.0); Globulin 4.7 g/dL (2.3-3.5); Potassium 3.6 mEq/L (3.5-5.1); Protein, Total 7.9 g/dL (6.4-8.2)
--- NOTE | 2025-01-27 14:15 | RAD REPORT ---
EXAMINATION: CT ABDOMEN AND PELVIS WITH CONTRAST CLINICAL INDICATION: ABD PAIN TECHNIQUE: CT abdomen and pelvis was performed, after the administration of IV contrast, as per [facility]. Axial, sagittal and coronal reconstructions were obtained. One or more of the following dose reduction techniques were used: Automated exposure control, adjustment of the mA and k V according to patient size, and iterative reconstruction. Unless otherwise specified, incidental findings do not require dedicated imaging follow-up. COMPARISON: 01/11/2020 FINDINGS: LOWER CHEST: Mild linear atelectasis in both lung bases. LIVER: Mild fatty liver is present. No focal lesion or biliary dilatation is seen. Cholecystectomy clips. SPLEEN: Normal size. No focal lesion. PANCREAS: No mass, ductal dilation, or marbella-pancreatic fluid. ADRENALS: Normal; no mass. KIDNEYS: Normal size and contour. No hydronephrosis. GASTROINTESTINAL TRACT: No evidence of free air, significant intra-abdominal free fluid, bowel obstru ction or abscess. Moderate stool is present throughout the colon. APPENDIX: Appendix not visualized, but no inflammatory changes in region of appendix. LYMPH NODES: No lymphadenopathy. MUSCULOSKELETAL: Mild lower lumbar spondylosis is present. IMPRESSION: No acute or concerning abnormalities seen in the abdomen or pelvis. Moderate fecal retention throughout the colon.
--- NOTE | 2025-01-27 14:19 | ER ---
Nurse's Notes [facility] Name: Ivette Vu Age: 74 yrs Sex: Female : 1950 Arrival Date: 01/27/2025 Time: 13:14 Bed 28 Private MD: Diagnosis: Constipation, acute abdominal pain Presentation: 01/27 13:19 Chief complaint: EMS states: Seen in ED this morning and dx w/ "small impaction", has ph not had BM in approx 9 days, no vomiting, pt was discharged home this morning w/ no prescriptions, just OTC suggestions, called 911 again d/t abdominal pain, pt very anxious on scene, EMS gave 5 mg Versed and 4 mg Zofran IVP. Coronavirus screen: Vaccine status: Patient reports being unvaccinated. Ebola Screen: No symptoms or risks identified at this time. Initial Sepsis Screen: Does the patient meet any 2 criteria? No. Patient's initial sepsis screen is negative. Does the patient have a suspected source of infection? No. Patient's initial sepsis screen is negative. Risk Assessment: Do you want to hurt yourself or someone else? Patient reports no desire to harm self or others. Onset of symptoms was January 27, 2025. 13:19 Method Of Arrival: EMS: [facility] ph 13:19 Acuity: KRISHNA 3 ph Triage Assessment: 13:35 General: Appears in no apparent distress. uncomfortable, well groomed. Pain: Complains ph of pain in abdomen. Neuro: Level of Consciousness is obeys commands, confused, Oriented to person, place. Cardiovascular: Capillary refill < 3 seconds in bilateral fingers Patient's skin is warm and dry. Respiratory: Airway is patent Respiratory effort is even, unlabored, Respiratory pattern is regular, symmetrical. GI: Parent/caregiver reports the patient having constipation, nausea. 01/28 01:03 General: Behavior is calm. kj2 Historical: - Allergies: 01/27 13:33 Sulfa (Sulfonamide Antibiotics); ph - PMHx: 13:33 Hypertension; Thyroid problem; ph - Immunization history:: Adult Immunizations unknown. - Infectious Disease History:: Denies. - Social history:: Smoking status: unknown. Screenin:33 [facility] ED Fall Risk Assessment (Adult) History of falling in the last 3 months, ph including since admission No falls in past 3 months (0 pts) Confusion or Disorientation No (0 pts) Intoxicated or Sedated No (0 pts) Impaired Gait No (0 pts) Mobility Assist Device Used No (0 pt) Altered Elimination No (0 pt) Score/Fall Risk Level 0 - 2 = Low Risk Oriented to surroundings, Maintained a safe environment, Hourly rounding (assess needs \\T\\ fall precautionary measures) done. Abuse screen: Denies threats or abuse. Denies injuries from another. Nutritional screening: No deficits noted. Tuberculosis screening: No symptoms or risk factors identified. Assessment: 14:30 General: SEE TRIAGE ASSESSMENT. ph 16:00 Reassessment: Patient appears in no apparent distress at this time. Pt oriented to ph person, attempted to assist pt up to bedside commode, pt unable to follow instructions, refusing to sit down on commode, at bedside. 16:30 Reassessment: Patient appears in no apparent distress at this time. Attempted soap suds ph enema, pt unable to tolerate, is anxious, unable to follow commands and restless in the bed. 01/28 01:03 GI: Bowel sounds Abd is non tender X 4 quads. kj2 Vital Signs: 01/27 13:19 BP 124 / 54; Pulse 71; Resp 18; Temp 97.9; Pulse Ox 96% on R/A; Weight 57.15 kg; Height ph 5 ft. 2 in. ; 15:00 BP 127 / 110; Pulse 68; Resp 18; Pulse Ox 98% on R/A; ph 16:30 BP 142 / 96; Pulse 67; Resp 18; Pulse Ox 99% on R/A; ph 13:19 Body Mass Index 23.05 (57.15 kg, 157.48 cm) ph ED Course: 13:19 Patient arrived in ED. sp3 13:19 Lydia Jeronimo MD is Attending Physician. sp3 13:22 Triage completed. ph 13:33 Arm band placed on Patient placed in an exam room, on a stretcher. ph 13:34 Patient has correct armband on for positive identification. Bed in low position. Call light in reach. Side rails up X2. human resources assistant on. Pulse ox on. NIBP on. 13:36 Michaela Dejesus, RN is Primary Nurse. ph 13:51 Initial lab(s) drawn, by me, sent to lab. Maintain EMS IV. Dressing intact. Good blood ph return noted. Site clean \\T\\ dry. Gauge \\T\\ site: 20 RAC. Flushed with 10 mL NS. 14:02 CT Abd/Pelvis - IV Contrast Only In Process Unspecified. EDMS 14:18 Toni Pinto MD is Hospitalizing Provider. sp3 16:38 No provider procedures requiring assistance completed. Patient admitted, IV remains in ph place. 01/28 01:03 Provided Education on: need for admit. kj2 Administered Medications: 01/27 13:51 Drug: NS 0.9% IV 1000 ml IV at 1 bolus Per protocol; to be given as a bolus over 60 ph minutes Route: IV; Rate: 1 bolus; Site: right antecubital; 15:00 Follow up: IV Status: Completed infusion; IV Intake: 1000ml ph Medication: 13:34 VIS not applicable for this client. ph Intake: 15:00 IV: 1000ml; Total: 1000ml. ph Outcome: 14:19 Decision to Hospitalize by Provider. sp3 17:00 Admitted to ER Hold. Please see [facility] for further documentation. ph 17:00 Condition: stable 17:00 Instructed on the need for admit, 01/28 01:04 Patient left the ED. kj2 Signatures: Dispatcher [employer] Michaela Rodriguez, RN RN ph Lydia Jeronimo MD MD sp3 Yara Contreras RN RN kj2
--- NOTE | 2025-01-27 14:19 | EDPHYS ---
Physician Documentation [facility] Name: Ivette Vu Age: 74 yrs Sex: Female : 1950 Arrival Date: 01/27/2025 Time: 13:14 Bed 28 Private MD: ED Physician Lydia Jeronimo HPI: 01/27 13:46 This 74 yrs old Female presents to ER via EMS with complaints of Constipation. sp3 13:46 74-year-old female with history of hypertension, hypothyroidism, constipation now sp3 presents to the ED with recurrent abdominal pain. Patient was seen approximately 12 hours ago here at this facility for constipation and abdominal pain where noncontrast CT scan was performed which demonstrated moderate constipation without impaction or other abnormality. Patient was discharged on constipation medications and now presents again via EMS for recurrent abdominal pain getting worse. She denies any vomiting, diarrhea, bleeding, back pain, chest pain, shortness of breath, or any other signs or symptoms on ROS at this time. Patient sees Dr. Pinto as PCP.. Historical: - Allergies: 13:33 Sulfa (Sulfonamide Antibiotics); ph - PMHx: 13:33 Hypertension; Thyroid problem; ph - Immunization history:: Adult Immunizations unknown. - Infectious Disease History:: Denies. - Social history:: Smoking status: unknown. ROS: 13:48 Constitutional: Negative for fever, chills, and weight loss, Eyes: Negative for injury, sp3 pain, redness, and discharge, ENT: Negative for injury, pain, and discharge, Neck: Negative for injury, pain, and swelling, Cardiovascular: Negative for chest pain, palpitations, and edema, Respiratory: Negative for shortness of breath, cough, wheezing, and pleuritic chest pain, Back: Negative for injury and pain, MS/Extremity: Negative for injury and deformity, Skin: Negative for injury, rash, and discoloration, Neuro: Negative for headache, weakness, numbness, tingling, and seizure, Psych: Negative for depression, anxiety, suicide ideation, homicidal ideation, and hallucinations, Allergy/Immunology: Negative for hives, rash, and allergies, Endocrine: Negative for neck swelling, polydipsia, polyuria, polyphagia, and marked weight changes, Hematologic/Lymphatic: Negative for swollen nodes, abnormal bleeding, and unusual bruising, 13:48 All other systems are negative, Exam: 13:48 Constitutional: This is a well developed, well nourished patient who is awake, alert, sp3 and in no acute distress. Head/Face: Normocephalic, atraumatic. Eyes: Pupils equal round and reactive to light, extra-ocular motions intact. Lids and lashes normal. Conjunctiva and sclera are non-icteric and not injected. Cornea within normal limits. Periorbital areas with no swelling, redness, or edema. Neck: Trachea midline, no thyromegaly or masses palpated, and no cervical lymphadenopathy. Supple, full range of motion without nuchal rigidity, or vertebral point tenderness. No Meningismus. Chest/axilla: Normal chest wall appearance and motion. Nontender with no deformity. No lesions are appreciated. Cardiovascular: Regular rate and rhythm with a normal S1 and S2. No gallops, murmurs, or rubs. Normal PMI, no JVD. No pulse deficits. Respiratory: Lungs have equal breath sounds bilaterally, clear to auscultation and percussion. No rales, rhonchi or wheezes noted. No increased work of breathing, no retractions or nasal flaring. Back: No spinal tenderness. No costovertebral tenderness. Full range of motion. Skin: Warm, dry with normal turgor. Normal color with no rashes, no lesions, and no evidence of cellulitis. MS/ Extremity: Pulses equal, no cyanosis. Neurovascular intact. Full, normal range of motion. Neuro: Awake and alert, GCS 15, oriented to person, place, time, and situation. Cranial nerves II-XII grossly intact. Motor strength 5/5 in all extremities. Sensory grossly intact. Cerebellar exam normal. Normal gait. Psych: Awake, alert, with orientation to person, place and time. Behavior, mood, and affect are within normal limits. 13:48 Abdomen/GI: Patient tender to palpation bilateral lower quadrants. Normal vital signs noted., Vital Signs: 13:19 BP 124 / 54; Pulse 71; Resp 18; Temp 97.9; Pulse Ox 96% on R/A; Weight 57.15 kg; Height ph 5 ft. 2 in. ; 15:00 BP 127 / 110; Pulse 68; Resp 18; Pulse Ox 98% on R/A; ph 16:30 BP 142 / 96; Pulse 67; Resp 18; Pulse Ox 99% on R/A; ph 13:19 Body Mass Index 23.05 (57.15 kg, 157.48 cm) ph MDM: 13:21 Medical Screening Exam initiated sp3 13:48 Data reviewed: vital signs, nurses notes, old medical records, lab test result(s), sp3 radiologic studies. ED course: 74-year-old female with PMH above now with recurrent lower abdominal pain. Differential diagnosis includes constipation, colitis, bowel ischemia, other intra-abdominal pathology, kidney stone, UTI, among others. Workup will include CT scan of the abdomen pelvis with IV contrast, general labs and supportive care. Probable admission to Dr. Pinto service once etiology determined.. 14:18 ED course: Full workup negative except for moderate stool retention. Will start sp3 soapsuds enema after speaking with Dr. Pinto who asked that we place her in observation for 23 hours for pain control and constipation.. 16:49 ED course: Discussed with GI and hospitalist at [facility]. Patient will be sp3 admitted there. Vital signs continue to be normal and blood is being transfused along with Protonix drip.. 01/27 13:21 Order name: CBC with Diff sp3 01/27 13:21 Order name: CMP; Complete Time: 14:15 sp3 01/27 13:21 Order name: Lipase; Complete Time: 14:15 sp3 01/27 13:21 Order name: Urinalysis w/ reflexes sp3 01/27 13:21 Order name: Lactate w/ 2H reflex if indic.; Complete Time: 14:15 sp3 01/27 14:27 Order name: Basic Metabolic Panel EDMS 01/27 14:27 Order name: Basic Metabolic Panel EDMS 01/27 14:27 Order name: CBC with Automated Diff EDMS 01/27 14:27 Order name: CBC with Automated Diff EDMS 01/27 15:36 Order name: CBC Smear Scan EDMS 01/27 13:21 Order name: CT Abd/Pelvis - IV Contrast Only; Complete Time: 14:15 sp3 01/27 13:21 Order name: IV Saline Lock; Complete Time: 13:35 sp3 01/27 13:21 Order name: Labs collected and sent; Complete Time: 13:51 sp3 Administered Medications: 13:51 Drug: NS 0.9% IV 1000 ml IV at 1 bolus Per protocol; to be given as a bolus over 60 ph minutes Route: IV; Rate: 1 bolus; Site: right antecubital; 15:00 Follow up: IV Status: Completed infusion; IV Intake: 1000ml ph Disposition Summary: 01/27/25 14:19 Hospitalization Ordered Notes: Hospitalization Status: Observation sp3 Provider: Toni Pinto sp3 Condition: Stable sp3 Problem: an acute exacerbation sp3 Symptoms: have worsened sp3 Bed/Room Type: Standard sp3 Location: Telemetry/MedSurg (observation)(01/27/25 22:18) Room Assignment: 414(01/27/25 22:18) Diagnosis - Constipation, acute abdominal pain sp3 Forms: - Medication Reconciliation Form sp3 - SBAR form sp3 - Leadership Thank You Letter sp3 Signatures: Dispatcher [employer] EDGalina Vail RN RN kl Hall, Patricia, RN RN ph Patel, Setul, MD MD sp3 Julianne Danielle RN RN kb3 Corrections: (The following items were deleted from the chart) 16:38 14:19 Telemetry/MedSurg (observation) sp3 kb3 16:38 14:19 sp3 kb3 17:13 14:23 Misc. Order ordered. sp3 ph 22:18 16:38 [facility] ER HOLD kb3 kl 22:18 16:38 ERHOLD- kb3 kl
[2025-01-27 15:35] LABS: Platelet Estimate ADEQ; White Blood Cell Scan OK (OK)
[2025-01-27 15:36] LABS: Blood Morphology Comment NOT SEEN (NOT SEEN)
[2025-01-27 19:46] VITALS: BMI 23.3
[2025-01-28 02:12] VITALS: O2SAT 99
[2025-01-28 08:20] LABS: Absolute Lymphocytes (CBC) 0.9 K/uL (0.7-4.9); Absolute Monocytes 0.8 K/uL (0.1-1.3); Absolute Neutrophil 5.1 K/uL (1.8-8.0); Basophils % 0.4 % (0-1.3); Hematocrit 29.5 % (36.0-45.0); Hemoglobin 10.1 g/dL (12.0-15.0); Lymphocytes % 12.9 % (15.3-44.8); MCH 29.5 pg (27.0-35.0); MCHC 34.2 g/dL (32.0-36.0); MCV 86.1 fL (80-100); Monocytes % 11.8 % (3.3-12.3); Neutrophils % 74.9 % (41.7-73.7); Platelets 240 thou/uL (152-406); RBC Red Blood Cell Count 3.43 M/uL (3.86-4.86); Red Cell Distribution Width 12.8 % (12.1-15.2)
[2025-01-28 08:33] LABS: Anion Gap 10.1 mEq/L (5.0-15.0); Potassium 3.1 mEq/L (3.5-5.1)
[2025-01-28 12:02] VITALS: BP 148/63; TEMP 98.9
--- NOTE | 2025-01-28 13:06 | P.SSS ---
Patient History Date of Service: 01/28/25 Reason for admission: SEVERE CONSTIPATION History of Present Illness: JACQUELINE HAS SEVERE ALZ. DEMENTIA. SHE HAS NOT HAD BM FOR A WEEK. SHE CAME TO ER TWICE. WE GAVE HER SOAP SUDDS [facility] AND IT WORKED. SHE WAS TO BE ON HOSPICE BUT CALLED AMBULANCE WITHIN HALF AN HOUR BEFORE THE HOSPICE NURSES COME AND GIVE HER ENEMA. SHE IS STABLE FOR HOME. Allergies Sulfa (Sulfonamide Antibiotics) Adverse Reaction (Verified 11/03/21 11:26) Nausea/Vomiting Home medications list reviewed: Yes Home Medications: Fluoxetine HCl [Prozac] 20 mg PO DAILY 09/02/19 Levothyroxine Sodium 100 mcg PO DAILY 09/02/19 Losartan Potassium [Cozaar] 100 mg PO DAILY 09/02/19 Nebivolol HCl [Bystolic] 10 mg PO DAILY 11/03/21 Memantine HCl 10 mg PO BID 01/27/25 Quetiapine [Seroquel] 25 mg PO BEDTIME 01/27/25 - Past Medical/Surgical History Has patient received pneumonia vaccine in the past: Yes -: HTN -: Hypothyroidism -: Dementia - Social History Smoking Status: Never smoker Alcohol use: No CD- Drugs: No Caffeine use: No Place of Residence: Home Review of Systems 10-point ROS is otherwise unremarkable General: As per HPI Physical Examination - Vital Signs Temperature: 98.9 F Blood Pressure: 148/63 Pulse: 70 Respirations: 14 Pulse Ox (%): 94 - Physical Exam General: Moderate distress, Confused HEENT: Atraumatic, PERRLA, Mucous membr. moist/pink, EOMI, Sclerae nonicteric Neck: Supple, 2+ carotid pulse no bruit, No LAD, Without JVD or thyroid abnormality Respiratory: Clear to auscultation bilaterally, Normal air movement Cardiovascular: Regular rate/rhythm, Normal S1 S2 Gastrointestinal: Normal bowel sounds, No tenderness Musculoskeletal: No tenderness Integumentary: No rashes Neurological: Normal gait, Normal speech, Normal strength at 5/5 x4 extr, Normal tone, Normal affect Lymphatics: No axilla or inguinal lymphadenopathy - Studies Laboratory Data (last 24 hrs) 01/27/25 01/27/25 13:43 13:43 WBC 7.20 Hgb 10.6 L Hct 29.6 L Plt Count 239 Sodium 134 L Potassium 3.6 BUN 11 Creatinine 0.68 Glucose 102 Total Bilirubin 1.0 AST 17 ALT 17 Alkaline Phosphatase 73 Lipase 26 - Diagnosis (Problem(s)) (1) Constipation Current Visit: Yes Status: Chronic Plan: [facility] WORKED. THEY WERE IN HURRY TO COME HERE AND ALSO SOON SHE HAD BM, NURSE CALLED THAT THEY WANTED TO GO HOME. I GAVE VERBAL TO [facility] WILL HAVE HOSPICE ADMIT IN AM. (2) Alzheimer disease Current Visit: Yes Status: Acute - Disposition Disposition: ROUTINE DISCHARGE
== END 2025-01-28 13:00 | disposition home or self-care (01) ==
LOC: ER 13:14 → ERHOLD 14:21 → 4TH 01-28 00:13
PROVIDERS: ADMIT Internal Medicine; ATTEND Internal Medicine
DX: K59.00 Constipation, unspecified (principal); G30.9 Alzheimer's disease, unspecified; F02.80 Dementia in other diseases classified elsewhere, unspecified severity, without behavioral disturbance, psychotic disturbance, mood disturbance, and anxiety; Z88.2 Allergy status to sulfonamides
CPT/HCPCS: 36415; 74177; 80048; 80053; 83605; 83690; 85025; G0378; Q9967